=== PATIENT | female | born 1990 | race Caucasian/White ===

== ENCOUNTER 2019-11-16 05:25 | Inpatient (IN) | payer BC ==
[2019-11-16] MEDS ORDERED: Sodium Chloride 0.9% 10 ML Syringe FLUSH PRN (06:29)
[2019-11-16] MEDS ORDERED: ceFAZolin 2 GM in Premix Bag 1 BAG IV ONE (06:29)
[2019-11-16] MEDS ORDERED: Citric Acid/Sodium Citrate Solution 30 ML Cup PO ONE (06:29)
[2019-11-16] MEDS ORDERED: Sodium Chloride 0.9% 2.5 ML Syringe FLUSH PRN (06:29)
[2019-11-16] MEDS ORDERED: Sodium Chloride 0.9% 10 ML SDV IV PRN (06:29)
[2019-11-16] MEDS ORDERED: Oxytocin/0.9 % Sodium Chloride 30 UNIT/500 ML BAG IV SCH (06:30)
[2019-11-16] MEDS: Lactated Ringers 1,000 ML IV SCH ×2 (07:12→07:45)
[2019-11-16] MEDS ORDERED: Acetaminophen/oxyCODONE 325-5 MG Tab PO PRN ×2 (07:41→09:28)
[2019-11-16] MEDS ORDERED: fentaNYL 100 MCG/2 ML SDV IVPUSH PRN (07:41)
[2019-11-16] MEDS ORDERED: Ondansetron 4 MG/2 ML SDV IVPUSH PRN ×2 (07:41→09:28)
[2019-11-16] MEDS ORDERED: diphenhydrAMINE 50 MG/ML SDV IVPUSH PRN ×2 (07:41→09:28)
[2019-11-16] MEDS ORDERED: Naloxone 0.4 MG/ML Syringe IVPUSH PRN (07:41)
--- NOTE | 2019-11-16 07:43 | PCM.PREANE ---
Preanesthetic Assessment - Anesthesia/Transfusion/Family Hx Anesthesia History: Prior Anesthesia Without Reaction Family History of Anesthesia Reaction: No Transfusion History: No Prior Transfusion(s) Intubation History: Unknown - Review of Systems General: No Symptoms Pulmonary: No Symptoms Cardiovascular: No Symptoms Gastrointestinal: No Symptoms Neurological: No Symptoms Other: Reports: None - Physical Assessment Height: 5 ft Weight: 77.111 kg ASA Class: 2E Mental Status: Alert & Oriented x3 Airway Class: Mallampati = 1 Dentition: Reports: Normal Dentition Thyro-Mental Finger Breadths: 3 Mouth Opening Finger Breadths: 3 ROM/Head Extension: Full Lungs: Clear to Auscultation, Normal Respiratory Effort Cardiovascular: Regular Rate, Regular Rhythm - Lab Values: Laboratory Last Values WBC 8.62 K/uL (4.0-11.0) 11/16/19 06:58 RBC 4.76 M/uL (4.30-5.90) 11/16/19 06:58 Hgb 11.2 g/dL (12.0-16.0) L 11/16/19 06:58 Hct 35.3 % (36.0-46.0) L 11/16/19 06:58 MCV 74.2 fL (80.0-98.0) L 11/16/19 06:58 MCH 23.5 pg (27.0-32.0) L 11/16/19 06:58 MCHC 31.7 g/dL (31.0-37.0) 11/16/19 06:58 RDW Std Deviation 37.9 fl (28.0-62.0) 11/16/19 06:58 RDW Coeff of Ann-Marie 14 % (11.0-15.0) 11/16/19 06:58 Plt Count 384 K/uL (150-400) 11/16/19 06:58 MPV 8.70 fL (7.40-12.00) 11/16/19 06:58 Nucleated RBC % 0.0 /100WBC 11/16/19 06:58 Nucleated RBCs # 0 K/uL 11/16/19 06:58 Membrane Rupture POSITIVE 11/16/19 05:30 - Allergies Allergies/Adverse Reactions: Allergies Allergy/AdvReac Type Severity Reaction Status Date / Time No Known Allergies Allergy Verified 11/16/19 05:37 - Blood Blood Available: No - Anesthesia Plan Pre-Op Medication Ordered: None - Acknowledgements Anesthesia Type Planned: Spinal (general anesthesia back-up plan) Pt an Appropriate Candidate for the Planned Anesthesia: Yes Alternatives and Risks of Anesthesia Discussed w Pt/Guardian: Yes Pt/Guardian Understands and Agrees with Anesthesia Plan: Yes PreAnesthesia Questionnaire - Past Health History Medical/Surgical History: Denies Medical/Surgical History HEENT History: Reports: Other (See Below) Other HEENT History: wears contacts/glasses Cardiovascular History: Reports: None Respiratory History: Reports: None Gastrointestinal History: Reports: None Genitourinary History: Reports: Renal Calculus Other Genitourinary History: hx kidney stone MANAGER ASSURANCE History: Reports: Musculoskeletal History: Reports: None Neurological History: Reports: None Psychiatric History: Reports: Anxiety, Depression Endocrine/Metabolic History: Reports: None Hematologic History: Reports: None Immunologic History: Reports: None Oncologic (Cancer) History: Reports: None Dermatologic History: Reports: None - Past Surgical History Head Surgeries/Procedures: Reports: None HEENT Surgical History: Reports: Oral Surgery Cardiovascular Surgical History: Reports: None Respiratory Surgical History: Reports: None GI Surgical History: Reports: Appendectomy (open) Female Surgical History: Reports: Section Endocrine Surgical History: Reports: None Neurological Surgical History: Reports: None Musculoskeletal Surgical History: Reports: None Oncologic Surgical History: Reports: None Dermatological Surgical History: Reports: None - SUBSTANCE USE Smoking Status *Q: Former Smoker Tobacco Use Within Last Twelve Months: No Second Hand Smoke Exposure: No Recreational Drug Use History: No - HOME MEDS Home Medications: Home Meds Aspirin [Low Dose Aspirin EC] 81 mg PO DAILY 11/15/19 [History] Ondansetron HCl [Zofran] 4 mg PO ASDIRECTED PRN 11/15/19 [History] Pnv No.95/Ferrous Fum/Folic AC [ Vitamin Tablet] 1 tab PO DAILY [History] - CURRENT (IN HOUSE) MEDS Current Meds: Current Medications Oxytocin/Sodium Chloride (Oxytocin 30 Unit/500 Ml-Ns) 30 unit in 500 mls @ 250 mls/hr IV TITRATE [facility] Lactated Ringer's (Ringers, Lactated) 1,000 mls @ 500 mls/hr IV BOLUS [facility] Last Admin: 11/16/19 07:12 Dose: 500 mls/hr Sodium Chloride (Saline Flush) 10 ml FLUSH ASDIRECTED PRN PRN Reason: Keep Vein Open Sodium Chloride (Saline Flush) 2.5 ml FLUSH ASDIRECTED PRN PRN Reason: Keep Vein Open Sodium Chloride (Normal Saline) 10 ml IV ASDIRECTED PRN PRN Reason: IV Use Discontinued Medications Citric Acid/Sodium Citrate (Bicitra Solution) 30 ml PO ONETIME ONE Stop: 11/16/19 06:30 Cefazolin Sodium/Dextrose 2 gm (/ Premix) 50 mls @ 100 mls/hr IV ONETIME ONE Stop: 11/16/19 06:58
[2019-11-16] MEDS ORDERED: ePHEDrine 50 MG/ML SDV ONE (07:44)
[2019-11-16] MEDS ORDERED: Phenylephrine/Normal Saline 100 MCG/ML 10 ML Syringe ONE (07:44)
[2019-11-16] MEDS ORDERED: ceFAZolin 1 GM Vial ONE (07:45)
[2019-11-16] MEDS ORDERED: Sodium Chloride 0.9% 40 ML ONE (07:45)
[2019-11-16] MEDS ORDERED: Octyl 2-Cyanoacrylate 1 Tube ONE (07:49)
[2019-11-16] MEDS ORDERED: Morphine PF 10 MG/10 ML SDV ONE (07:50)
[2019-11-16] MEDS ORDERED: Oxytocin 10 Units/1 ML SDV ONE ×2 (08:45→08:49)
[2019-11-16] MEDS ORDERED: Oxytocin 10 Units/1 ML SDV IM PRN (09:28)
[2019-11-16] MEDS ORDERED: Lanolin 100% Cream 7 GM Tube TOP PRN (09:28)
[2019-11-16] MEDS ORDERED: Misoprostol 200 MCG Tab RECTAL PRN (09:28)
[2019-11-16] MEDS ORDERED: Methylergonovine 0.2 MG/1 ML Amp IM PRN (09:28)
[2019-11-16] MEDS ORDERED: Tranexamic Acid 1,000 MG in Sodium Chloride 0.9% 100 ML IV PRN (09:28)
[2019-11-16] MEDS ORDERED: Bisacodyl 10 MG Supp RECTAL PRN (09:28)
--- NOTE | 2019-11-16 09:28 | PCM.OPNOTE ---
- General Post-Op/Procedure Note Date of Surgery/Procedure: 11/16/19 Operative Procedure(s): Repeat lower segment transverse Findings: Live female delivered at 838am , 9/9 weight 2790g Pre Op Diagnosis: 29yo @ 39w0d with prelabor rupture of membrane. Previous X 1 Post-Op Diagnosis: same Primary Surgeon: Ron Jarvis Anesthesia Provider: Francisco Valdivia Interior Painter: Waleska Hartmann Fluid Replacement, Intraop: 2,600 Output, Urine Amount: 180 EBL in mLs: 600 Complications: None Condition: Good
[2019-11-16] MEDS ORDERED: Lactated Ringers 1,000 ML IV SCH (09:30)
[2019-11-16] MEDS ORDERED: Oxytocin/Lactated Ringers 30 UNIT/500 ML BAG IV SCH (09:30)
--- NOTE | 2019-11-16 10:08 | PCM.POSTAN ---
POST ANESTHESIA ASSESSMENT - MENTAL STATUS Mental Status: Alert - VITAL SIGNS Vital Signs: Stable - RESPIRATORY Respiratory Status: Respiratory Rate WNL - CARDIOVASCULAR CV Status: Pulse Rate WNL - GASTROINTESTINAL GI Status: No Symptoms - PAIN Pain Score: 0 (SAB regressing well.) - POST OP HYDRATION Hydration Status: Adequate & Stable - OBSERVATIONS Free Text/Narrative:: Doing well. No problems noted.
[2019-11-16] MEDS: Ketorolac 30 MG/ML SDV IVPUSH SCH ×3 (10:13→21:16)
[2019-11-16] MEDS: Nalbuphine 10 MG/1 ML Vial IVPUSH PRN ×2 (10:13→14:29)
--- NOTE | 2019-11-16 10:55 | OR ---
SURGEON: TIMA PATEL DATE OF PROCEDURE: 11/16/2019 PREOPERATIVE DIAGNOSES: A 29-year-old, G2, P 1-0-0-1, at 39 weeks with prelabor rupture of membranes, previous x1. POSTOPERATIVE DIAGNOSES: A 29-year-old, G2, P 1-0-0-1, at 39 weeks with prelabor rupture of membranes, previous x1. PROCEDURE: Repeat lower transverse section. IV FLUID: 2600. ESTIMATED BLOOD LOSS: 600. URINE OUTPUT: 180. MOLD CHIPPER: Waleska Hartmann. COMPLICATION: None. ANESTHESIA: Spinal. NOTES AND FINDINGS: Live female delivered at 8:38 a.m. score is 9 and 9. Weight is 2790 g. BRIEF HISTORY: A 29-year-old, G2, P 1-0-0-1, at 39 weeks 0 days, who was complaining about some rupture of membranes. She was confirmed positive with AmniSure. As a result, she was consented for . She declined . Risks, benefits, and alternatives were given, and she decided to proceed. DESCRIPTION OF PROCEDURE: The patient was taken to the operating room where spinal anesthesia was performed without difficulty. She was prepared and draped in the dorsal supine position with a leftward tilt. A Pfannenstiel skin incision was made on the line of the previous incision and carried down to the fascia with the scalpel. The fascia was incised and extended upward and laterally and the fascia was then from the rectus muscle superiorly and inferiorly. The rectus muscle was in the midline all the way to the level of the pubic symphysis. With gradual dissection, the peritoneum was entered in without any difficulty. The peritoneum was stretched manually and the Shahram retractor was placed without any difficulty. Lower uterine incision bladder flap was made and the incision was then made, extended manually upwards and outwards. The fetus was in cephalic position, was put to the level of the incision. Then, fundal pressure was applied and the was delivered. There was a cord around the neck that was reduced. The cord was clamped and cut. The infant was handed over to the awaiting manager winter. The placenta was delivered with massage of the uterine fundus. The membranes were cleaned with moist laparotomy sponges. The uterus was repaired in 2 layers, first layer was with 0 Vicryl, second layer was an imbricating layer with 0 Monocryl. The Shahram retractor was then removed. The gutters were cleaned. Ovaries appeared normal and tubes appeared normal. The peritoneum was then approximated with 2-0 Vicryl. The rectus muscle was also approximated with mattress sutures and the fascia was closed with 0 Vicryl in a continuous fashion. The subcutaneous fat was closed with 3-0 plain gut and the skin was closed with 3-0 Monocryl on a Molina needle. All instrument and pad counts were correct x2. The patient tolerated the procedure well and was sent to the Labor and Delivery room in stable condition. CHECO DELGADO /[id number]
[2019-11-16] MEDS: Docusate Sodium 100 MG Cap PO SCH (21:17)
[2019-11-17] MEDS: Ketorolac 30 MG/ML SDV IVPUSH SCH ×2 (03:28→09:51)
--- NOTE | 2019-11-17 04:08 | PCM.PNPP ---
- General Info Date of Service: 11/17/19 Functional Status: Reports: Pain Controlled, Tolerating Diet, Ambulating - Review of Systems General: Reports: Fatigue. Denies: Fever, Weakness Pulmonary: Denies: Shortness of Breath Cardiovascular: Denies: Chest Pain, Palpitations, Lightheadedness Gastrointestinal: Reports: Abdominal Pain (incisional, well controlled). Denies : Nausea, Vomiting Genitourinary: Denies: Flank Pain Musculoskeletal: Reports: No Symptoms Skin: Reports: No Symptoms Neurological: Reports: No Symptoms Psychiatric: Reports: No Symptoms - General Info Date of Service: 11/17/19 - Patient Data Vital Signs - Most Recent: Last Vital Signs Temp 36.8 C 11/17/19 00:35 Pulse 92 11/17/19 03:00 Resp 17 11/17/19 03:00 BP 105/53 L 11/17/19 00:35 Pulse Ox 99 11/17/19 03:00 Weight - Most Recent: 77.111 kg I&O - Last 24 Hours: Intake & Output 11/16/19 11/16/19 11/17/19 14:59 22:59 06:59 Intake Total 2600 Output Total 360 Balance 2240 Lab Results - Last 24 Hours: Laboratory Results - last 24 hr 11/16/19 11/16/19 11/16/19 Range/Units 05:30 06:58 06:58 WBC 8.62 (4.0-11.0) K/uL RBC 4.76 (4.30-5.90) M/uL Hgb 11.2 L (12.0-16.0) g/dL Hct 35.3 L (36.0-46.0) % MCV 74.2 L (80.0-98.0) fL MCH 23.5 L (27.0-32.0) pg MCHC 31.7 (31.0-37.0) g/dL RDW Std Deviation 37.9 (28.0-62.0) fl RDW Coeff of Ann-Marie 14 (11.0-15.0) % Plt Count 384 (150-400) K/uL MPV 8.70 (7.40-12.00) fL Nucleated RBC % 0.0 /100WBC Nucleated RBCs # 0 K/uL Membrane Rupture POSITIVE Blood Type B POSITIVE Antibody Screen NEGATIVE Med Orders - Current: Current Medications Bisacodyl (Dulcolax) 10 mg RECTAL ONETIME PRN PRN Reason: Constipation Diphenhydramine HCl (Benadryl) 25 mg IVPUSH Q4H PRN PRN Reason: Itching Stop: 11/17/19 07:41 Diphenhydramine HCl (Benadryl) 25 mg IVPUSH Q6H PRN PRN Reason: Itching or Nausea Docusate Sodium (Colace) 100 mg PO BID [facility] Last Admin: 11/16/19 21:17 Dose: 100 mg Emollient Ointment (Lansinoh Hpa) 0 gm TOP ASDIRECTED PRN PRN Reason: Sore Nipples Last Admin: 11/16/19 19:16 Dose: 1 tube Fentanyl (Sublimaze) 50 mcg IVPUSH Q1H PRN PRN Reason: Pain (severe 7-10) Oxytocin/Sodium Chloride (Oxytocin 30 Unit/500 Ml-Ns) 30 unit in 500 mls @ 250 mls/hr IV TITRATE [facility] Lactated Ringer's (Ringers, Lactated) 1,000 mls @ 500 mls/hr IV BOLUS [facility] Last Admin: 11/16/19 07:45 Dose: 999 mls/hr Tranexamic Acid 1,000 mg/ (Sodium Chloride) 110 mls @ 660 mls/hr IV ONETIME PRN PRN Reason: Bleeding Lactated Ringer's (Ringers, Lactated) 1,000 mls @ 125 mls/hr IV ASDIRECTED [facility] Oxytocin/Lactated Ringer's (Pitocin In Lr 30 Units/500 Ml) 30 unit in 500 mls @ 2 mls/hr IV TITRATE [facility]; Protocol Ibuprofen (Motrin) 800 mg PO Q8H PRN PRN Reason: mild pain or fever Ketorolac Tromethamine (Toradol) 30 mg IVPUSH Q6H [facility] Stop: 11/17/19 09:31 Last Admin: 11/17/19 03:28 Dose: 30 mg Methylergonovine Maleate (Methergine) 0.2 mg IM ONETIME PRN PRN Reason: Excessive Vaginal Bleeding Misoprostol (Cytotec) 1,000 mcg RECTAL ONETIME PRN PRN Reason: excessive bleeding Nalbuphine HCl (Nubain) 5 mg IVPUSH ASDIRECTED PRN PRN Reason: Itching Last Admin: 11/16/19 14:29 Dose: 5 mg Naloxone HCl (Narcan) 0.1 mg IVPUSH ONETIME PRN PRN Reason: Respiratory Depression Stop: 11/17/19 07:41 Ondansetron HCl (Zofran) 4 mg IVPUSH Q6H PRN PRN Reason: Nausea Ondansetron HCl (Zofran) 4 mg IVPUSH Q4H PRN PRN Reason: Nausea/Vomiting Oxycodone/Acetaminophen (Percocet 325-5 Mg) 2 tab PO Q6H PRN PRN Reason: Pain (moderate 4-6) Oxycodone/Acetaminophen (Percocet 325-5 Mg) 1 tab PO Q4H PRN PRN Reason: Pain (moderate 4-6) Oxycodone/Acetaminophen (Percocet 325-5 Mg) 2 tab PO Q4H PRN PRN Reason: Pain (moderate 4-6) Oxytocin (Pitocin) 10 unit IM ASDIRECTED PRN PRN Reason: Excessive Vaginal Bleeding Sodium Chloride (Saline Flush) 10 ml FLUSH ASDIRECTED PRN PRN Reason: Keep Vein Open Sodium Chloride (Saline Flush) 2.5 ml FLUSH ASDIRECTED PRN PRN Reason: Keep Vein Open Sodium Chloride (Normal Saline) 10 ml IV ASDIRECTED PRN PRN Reason: IV Use Discontinued Medications Cefazolin Sodium (Ancef) Confirm Administered Dose 2 gm .ROUTE .STK-MED ONE Stop: 11/16/19 07:46 Citric Acid/Sodium Citrate (Bicitra Solution) 30 ml PO ONETIME ONE Stop: 11/16/19 06:30 Ephedrine Sulfate (Ephedrine Sulfate) Confirm Administered Dose 100 mg .ROUTE .STK-MED ONE Stop: 11/16/19 07:45 Cefazolin Sodium/Dextrose 2 gm (/ Premix) 50 mls @ 100 mls/hr IV ONETIME ONE Stop: 11/16/19 06:58 Acetaminophen (Ofirmev) Confirm Administered Dose 100 mls @ as directed .ROUTE .STK-MED ONE Stop: 11/16/19 07:42 Sodium Chloride (Normal Saline) Confirm Administered Dose 40 mls @ as directed .ROUTE .STK-MED ONE Stop: 11/16/19 07:46 Morphine Sulfate (Duramorph Pf) Confirm Administered Dose 10 mg .ROUTE .STK-MED ONE Stop: 11/16/19 07:51 Octyl Cyanoacrylate (Dermabond Advance) Confirm Administered Dose 1 applic .ROUTE .STK-MED ONE Stop: 11/16/19 07:50 Oxytocin (Pitocin) Confirm Administered Dose 20 unit .ROUTE .STK-MED ONE Stop: 11/16/19 08:46 Oxytocin (Pitocin) Confirm Administered Dose 10 unit .ROUTE .STK-MED ONE Stop: 11/16/19 08:50 Phenylephrine HCl (Phenylephrine In Ns 100 Mcg/Ml) Confirm Administered Dose 1 mg .ROUTE .STK-MED ONE Stop: 11/16/19 07:45 - Infant Interaction Support Person: Significant Other - Recovery Exam Fundal Tone: Firm Fundal Level: 1 Fingerbreadths Below Umbilicus Fundal Placement: Midline Lochia Amount: Scant Lochia Color: Rubra/Red Perineum Description: Intact, Minimal Bruising/Swelling Episiotomy/Laceration: Approximated Bladder Status: Indwelling Catheter in Place Urinary Elimination: Straight Catheterization - Exam General: Alert, Oriented Lungs: Normal Respiratory Effort Cardiovascular: Regular Rate, Regular Rhythm GI/Abdominal Exam: Normal Bowel Sounds, Soft Extremities: Pedal Edema (trace). No: Henrry's Sign Skin: Warm, Dry, Intact Wound/Incisions: Dressing Dry and Intact Neurological: No New Focal Deficit Psy/Mental Status: Alert, Normal Affect - Problem List & Annotations (1) S/P repeat low transverse SNOMED Code(s): 977514299, 15398904, 050369415, 318293799, 744190005 Code(s): Z98.891 - HISTORY OF UTERINE SCAR FROM PREVIOUS SURGERY Status: Acute Current Visit: Yes - Problem List Review Problem List Initiated/Reviewed/Updated: Yes - Assessment Assessment:: POD 1 status post repeat LTCS - Plan Plan:: Continue postoperative cares, ambulate halls.
--- NOTE | 2019-11-17 07:42 | PCM48HPAN ---
Post Anesthesia Note - EVALUATION WITHIN 48HRS OF ANESTHETIC Vital Signs in Normal Range: Yes Patient Participated in Evaluation: Yes Respiratory Function Stable: Yes Airway Patent: Yes Cardiovascular Function Stable: Yes Hydration Status Stable: Yes Pain Control Satisfactory: Yes Nausea and Vomiting Control Satisfactory: Yes Mental Status Recovered: Yes Vital Signs: Last Vital Signs Temp 36.1 C 11/17/19 04:53 Pulse 87 11/17/19 06:00 Resp 17 11/17/19 06:00 BP 104/63 11/17/19 04:53 Pulse Ox 97 11/17/19 06:00
[2019-11-17] MEDS: Docusate Sodium 100 MG Cap PO SCH ×2 (09:51→22:33)
[2019-11-17] MEDS: Ibuprofen 800 MG Tab PO PRN (16:03)
[2019-11-17] MEDS: Acetaminophen/oxyCODONE 325-5 MG Tab PO PRN (22:32)
[2019-11-18] MEDS: Ibuprofen 800 MG Tab PO PRN ×2 (00:40→08:47)
[2019-11-18] MEDS: Acetaminophen/oxyCODONE 325-5 MG Tab PO PRN (04:56)
[2019-11-18 08:18] VITALS: BP 117/76; PULSE 87
--- NOTE | 2019-11-18 08:45 | PCM.PNPP ---
- General Info Date of Service: 11/18/19 Functional Status: Reports: Pain Controlled, Tolerating Diet, Ambulating, Urinating - Review of Systems General: Reports: Fatigue. Denies: Fever, Weakness Pulmonary: Denies: Shortness of Breath Cardiovascular: Denies: Chest Pain, Palpitations, Lightheadedness Genitourinary: Reports: No Symptoms Musculoskeletal: Reports: No Symptoms Skin: Reports: No Symptoms Neurological: Reports: No Symptoms Psychiatric: Reports: No Symptoms - General Info Date of Service: 11/18/19 - Patient Data Vital Signs - Most Recent: Last Vital Signs Temp 36.4 C 11/18/19 08:00 Pulse 87 11/18/19 08:00 Resp 16 11/18/19 08:00 BP 117/76 11/18/19 08:00 Pulse Ox 97 11/18/19 08:00 Weight - Most Recent: 77.111 kg Lab Results - Last 24 Hours: Laboratory Results - last 24 hr 11/16/19 Range/Units 06:58 RPR Non Reactive (NonRea<1:1) Med Orders - Current: Current Medications Bisacodyl (Dulcolax) 10 mg RECTAL ONETIME PRN PRN Reason: Constipation Diphenhydramine HCl (Benadryl) 25 mg IVPUSH Q6H PRN PRN Reason: Itching or Nausea Docusate Sodium (Colace) 100 mg PO BID [facility] Last Admin: 11/17/19 22:33 Dose: 100 mg Emollient Ointment (Lansinoh Hpa) 0 gm TOP ASDIRECTED PRN PRN Reason: Sore Nipples Last Admin: 11/16/19 19:16 Dose: 1 tube Fentanyl (Sublimaze) 50 mcg IVPUSH Q1H PRN PRN Reason: Pain (severe 7-10) Oxytocin/Sodium Chloride (Oxytocin 30 Unit/500 Ml-Ns) 30 unit in 500 mls @ 250 mls/hr IV TITRATE [facility] Lactated Ringer's (Ringers, Lactated) 1,000 mls @ 500 mls/hr IV BOLUS [facility] Last Admin: 11/16/19 07:45 Dose: 999 mls/hr Tranexamic Acid 1,000 mg/ (Sodium Chloride) 110 mls @ 660 mls/hr IV ONETIME PRN PRN Reason: Bleeding Lactated Ringer's (Ringers, Lactated) 1,000 mls @ 125 mls/hr IV ASDIRECTED [facility] Oxytocin/Lactated Ringer's (Pitocin In Lr 30 Units/500 Ml) 30 unit in 500 mls @ 2 mls/hr IV TITRATE [facility]; Protocol Ibuprofen (Motrin) 800 mg PO Q8H PRN PRN Reason: mild pain or fever Last Admin: 11/18/19 00:40 Dose: 800 mg Methylergonovine Maleate (Methergine) 0.2 mg IM ONETIME PRN PRN Reason: Excessive Vaginal Bleeding Misoprostol (Cytotec) 1,000 mcg RECTAL ONETIME PRN PRN Reason: excessive bleeding Nalbuphine HCl (Nubain) 5 mg IVPUSH ASDIRECTED PRN PRN Reason: Itching Last Admin: 11/16/19 14:29 Dose: 5 mg Ondansetron HCl (Zofran) 4 mg IVPUSH Q6H PRN PRN Reason: Nausea Ondansetron HCl (Zofran) 4 mg IVPUSH Q4H PRN PRN Reason: Nausea/Vomiting Oxycodone/Acetaminophen (Percocet 325-5 Mg) 2 tab PO Q6H PRN PRN Reason: Pain (moderate 4-6) Oxycodone/Acetaminophen (Percocet 325-5 Mg) 1 tab PO Q4H PRN PRN Reason: Pain (moderate 4-6) Last Admin: 11/18/19 04:56 Dose: 1 tab Oxycodone/Acetaminophen (Percocet 325-5 Mg) 2 tab PO Q4H PRN PRN Reason: Pain (moderate 4-6) Oxytocin (Pitocin) 10 unit IM ASDIRECTED PRN PRN Reason: Excessive Vaginal Bleeding Sodium Chloride (Saline Flush) 10 ml FLUSH ASDIRECTED PRN PRN Reason: Keep Vein Open Sodium Chloride (Saline Flush) 2.5 ml FLUSH ASDIRECTED PRN PRN Reason: Keep Vein Open Sodium Chloride (Normal Saline) 10 ml IV ASDIRECTED PRN PRN Reason: IV Use Discontinued Medications Cefazolin Sodium (Ancef) Confirm Administered Dose 2 gm .ROUTE .STK-MED ONE Stop: 11/16/19 07:46 Citric Acid/Sodium Citrate (Bicitra Solution) 30 ml PO ONETIME ONE Stop: 11/16/19 06:30 Diphenhydramine HCl (Benadryl) 25 mg IVPUSH Q4H PRN PRN Reason: Itching Stop: 11/17/19 07:41 Ephedrine Sulfate (Ephedrine Sulfate) Confirm Administered Dose 100 mg .ROUTE .STK-MED ONE Stop: 11/16/19 07:45 Cefazolin Sodium/Dextrose 2 gm (/ Premix) 50 mls @ 100 mls/hr IV ONETIME ONE Stop: 11/16/19 06:58 Last Admin: 11/17/19 10:12 Dose: Not Given Acetaminophen (Ofirmev) Confirm Administered Dose 100 mls @ as directed .ROUTE .STK-MED ONE Stop: 11/16/19 07:42 Sodium Chloride (Normal Saline) Confirm Administered Dose 40 mls @ as directed .ROUTE .STK-MED ONE Stop: 11/16/19 07:46 Ketorolac Tromethamine (Toradol) 30 mg IVPUSH Q6H [facility] Stop: 11/17/19 09:31 Last Admin: 11/17/19 09:51 Dose: 30 mg Morphine Sulfate (Duramorph Pf) Confirm Administered Dose 10 mg .ROUTE .STK-MED ONE Stop: 11/16/19 07:51 Naloxone HCl (Narcan) 0.1 mg IVPUSH ONETIME PRN PRN Reason: Respiratory Depression Stop: 11/17/19 07:41 Octyl Cyanoacrylate (Dermabond Advance) Confirm Administered Dose 1 applic .ROUTE .STK-MED ONE Stop: 11/16/19 07:50 Oxytocin (Pitocin) Confirm Administered Dose 20 unit .ROUTE .STK-MED ONE Stop: 11/16/19 08:46 Oxytocin (Pitocin) Confirm Administered Dose 10 unit .ROUTE .STK-MED ONE Stop: 11/16/19 08:50 Phenylephrine HCl (Phenylephrine In Ns 100 Mcg/Ml) Confirm Administered Dose 1 mg .ROUTE .STK-MED ONE Stop: 11/16/19 07:45 - Interaction Support Person: Significant Other - Recovery Exam Fundal Tone: Firm Fundal Level: 2 Fingerbreadths Below Umbilicus Fundal Placement: Midline Lochia Amount: Scant Lochia Color: Rubra/Red Perineum Description: Intact, Minimal Bruising/Swelling Episiotomy/Laceration: None Bladder Status: Voiding Urinary Elimination: Indwelling Catheter - Exam General: Alert, Oriented Neck: Supple Lungs: Normal Respiratory Effort Cardiovascular: Regular Rate, Regular Rhythm GI/Abdominal Exam: Normal Bowel Sounds, Soft, Non-Tender Extremities: Pedal Edema (trace). No: Henrry's Sign Skin: Warm, Dry, Intact Wound/Incisions: No Drainage. No: Erythema Neurological: No New Focal Deficit Psy/Mental Status: Alert, Normal Affect, Normal Mood - Problem List & Annotations (1) S/P repeat low transverse SNOMED Code(s): 539309476, 48280493, 018919675, 464166820, 391623473 Code(s): Z98.891 - HISTORY OF UTERINE SCAR FROM PREVIOUS SURGERY Status: Acute Current Visit: Yes - Problem List Review Problem List Initiated/Reviewed/Updated: Yes - My Orders Last 24 Hours: My Active Orders 11/18/19 08:43 Ready for Discharge [RC] PER UNIT ROUTINE - Assessment Assessment:: POD 2 status post repeat LTCS - Plan Plan:: Doing well overall, would like to go home today. Discharge instructions reviewed. Follow up at [facility] 2 and 6 weeks. Discharge to home today.
[2019-11-18] MEDS: Docusate Sodium 100 MG Cap PO SCH (08:47)
== END 2019-11-18 13:05 | disposition home or self-care (01) | DRG 540 ==
LOC: MW.OBCHECK 05:25 → MW.OB 05:26 → OBSVTOIN 08:38 → MW.OBCHECK 08:38 → MW.OB 11:23
PROVIDERS: ADMIT Obstetrics & Gynecology; ATTEND Obstetrics & Gynecology
PROC: 10D00Z1 Extraction of Products of Conception, Low, Open Approach (ICD-10-PCS; principal; 2019-11-16)
DX: O34.211 Maternal care for low transverse scar from previous cesarean delivery (principal); Z37.0 Single live birth; Z3A.39 39 weeks gestation of pregnancy
CPT/HCPCS: 01961; 36415; 51702; 59025; 84112; 85014; 85018; 85027; 86593; 86850; 86900; 86901; A9270-GY; J0131; J0690; J1885; J2270; J2300; J2370; J2590; J7120

== ENCOUNTER 2020-08-16 02:37 | Day surgery (SDC) | payer BC ==
--- NOTE | 2020-08-16 03:26 | EDM.PDOC ---
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 She states that she began having sudden onset of cramping and bleeding this afternoon which is acutely worsened and she has had a significant amount of bleeding and clots. Now feels lightheaded when she is going to stand up. Feels like she wants to vomit. She thinks that she has passed the products of conception. She denies any persistent abdominal pain just intermittent cramping. No urinary symptoms. No other associated signs or symptoms. No other modifying, aggravating or alleviating factors. Review of systems: A 10-point review of systems, other than pertinent positives and negatives as stated per HPI, is otherwise negative. Past medical history: As per history of present illness and as reviewed below otherwise noncontributory. Surgical history: As per history of present illness and as reviewed below otherwise noncontributory. Social history: No reported history of drug or alcohol abuse. Family history: As per history of present illness and as reviewed below otherwise noncontributory. Physical exam: VITAL SIGNS: Reviewed. GENERAL: Appears to be in mild to moderate distress. Mild pallor. HEAD: No signs of head trauma. EYES: Pupils are equal. Extraocular motions intact. EARS: Hearing grossly intact. MOUTH: Oropharynx is normal. NECK: No adenopathy, no JVD. CHEST: Chest with clear breath sounds bilaterally. No wheezes, rales, or rhonchi. CARDIAC: Regular rate and rhythm. Normal S1 and S2, without murmurs, gallops, or rubs. VASCULAR: Peripheral pulses normal and equal in all extremities. ABDOMEN: Soft, mild pelvic tenderness, no distention, rebound or guarding. No masses palpated. MUSCULOSKELETAL: Good range of motion of all major joints. Extremities without clubbing, cyanosis or edema. NEUROLOGIC EXAM: Alert and oriented x 3. No focal sensory or motor deficits. Speech normal. Follows commands. PSYCHIATRIC: Mood normal. SKIN: No rash or lesions. Initial Differential Diagnosis & Plan: Miscarriage, ectopic , threatened miscarriage I will obtain a bedside ultrasound to evaluate for miscarriage versus threatened miscarriage. The patient has a soft blood pressure and will need to be lay down into a bed. I will start IV fluids, obtain CBC, anabolic panel, type and screen, and evaluate for need for transfusion. Definitive disposition and diagnosis as appropriate pending reevaluation and review of above. abdominal Pain Score (Numeric/FACES): 7 - Related Data Allergies Allergy/AdvReac Type Severity Reaction Status Date / Time No Known Allergies Allergy Verified 11/16/19 05:37 Home Meds: Home Meds . 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 History: Reports: Musculoskeletal History: Reports: None Neurological History: Reports: None Psychiatric History: Reports: Anxiety, Depression Endocrine/Metabolic History: Reports: None Hematologic History: Reports: None Immunologic History: Reports: None Oncologic (Cancer) History: Reports: None Dermatologic History: Reports: None - Infectious Disease History Infectious Disease History: Reports: None - Past Surgical History Head Surgeries/Procedures: Reports: None HEENT Surgical History: Reports: Oral Surgery Cardiovascular Surgical History: Reports: None Respiratory Surgical History: Reports: None GI Surgical History: Reports: Appendectomy Female Surgical History: Reports: Section Endocrine Surgical History: Reports: None Neurological Surgical History: Reports: None Musculoskeletal Surgical History: Reports: None Oncologic Surgical History: Reports: None Dermatological Surgical History: Reports: None Social & Family History - Family History HEENT: Reports: None GI: Reports: None : Reports: None OBGYN: Reports: None Musculoskeletal: Reports: None Oncologic: Reports: Lung - Tobacco Use Tobacco Use Status *Q: Never Tobacco User Second Hand Smoke Exposure: No - Caffeine Use Caffeine Use: Reports: Coffee - Recreational Drug Use Recreational Drug Use: No ED ROS GENERAL - Review of Systems Review Of Systems: See Below (noted) ED EXAM, GI/ABD - Physical Exam Exam: See Below (noted) ED ABDOMINAL/GI PROCEDURES - Ultrasound Ultrasound: Normal, Abnormal Pelvis Progress: PROCEDURE NOTE: Limited OB / Pelvic Ultrasound (transabdominal) Indication: Confirm a live IUP All images obtained and evaluated by me. Findings: 1. Uterus Identified 2. No significant Free Fluid Noted 3. No IUP identified. Some shotty/clotted appearing material in the uterus noted Interpretation: No IUP identified Signed by Prateek Lake M.D. Course - Vital Signs Last Recorded V/S: Last Vital Signs Temp 96.4 F L 08/16/20 03:02 Pulse 84 08/16/20 04:29 Resp 14 08/16/20 04:29 BP 117/52 L 08/16/20 04:29 Pulse Ox 99 08/16/20 04:29 - Orders/Labs/Meds Orders: Active Orders 24 hr Category Date Time Status UA RFX SALMA AND CULT IF INDIC [URIN] Stat Lab 08/16/20 03:07 Ordered Labs: Laboratory Tests 08/16/20 08/16/20 08/16/20 Range/Units 03:15 03:15 03:38 WBC 10.89 (4.0-11.0) K/uL RBC 4.66 (4.30-5.90) M/uL Hgb 12.6 (12.0-16.0) g/dL Hct 37.9 (36.0-46.0) % MCV 81.3 (80.0-98.0) fL MCH 27.0 (27.0-32.0) pg MCHC 33.2 (31.0-37.0) g/dL RDW Std Deviation 37.8 (28.0-62.0) fl RDW Coeff of Ann-Marie 13 (11.0-15.0) % Plt Count 373 (150-400) K/uL MPV 9.10 (7.40-12.00) fL Neut % (Auto) 76.9 (48.0-80.0) % Lymph % (Auto) 16.3 (16.0-40.0) % Story % (Auto) 5.0 (0.0-15.0) % Eos % (Auto) 1.4 (0.0-7.0) % Baso % (Auto) 0.4 (0.0-1.5) % Neut # (Auto) 8.4 H (1.4-5.7) K/uL Lymph # (Auto) 1.8 (0.6-2.4) K/uL Story # (Auto) 0.5 (0.0-0.8) K/uL Eos # (Auto) 0.2 (0.0-0.7) K/uL Baso # (Auto) 0.0 (0.0-0.1) K/uL Nucleated RBC % 0.0 /100WBC Nucleated RBCs # 0 K/uL Sodium 132 L (136-145) mmol/L Potassium 3.2 L (3.5-5.1) mmol/L Chloride 101 (98-107) mmol/L Carbon Dioxide 23.8 (21.0-32.0) mmol/L BUN 9 (7.0-18.0) mg/dL Creatinine 0.8 (0.6-1.0) mg/dL Est Cr Clr Drug Dosing 78.30 mL/min Estimated GFR (MDRD) > 60.0 ml/min Glucose 125 H (74-106) mg/dL Calcium 8.7 (8.5-10.1) mg/dL Total Bilirubin 0.4 (0.2-1.0) mg/dL AST 14 L (15-37) IU/L ALT 31 (14-63) IU/L Alkaline Phosphatase 47 (46-116) U/L Total Protein 7.1 (6.4-8.2) g/dL Albumin 3.7 (3.4-5.0) g/dL Globulin 3.4 (2.6-4.0) g/dL Albumin/Globulin Ratio 1.1 (0.9-1.6) HCG, Quant 616.0 mIU/mL Blood Type B POSITIVE Antibody Screen NEGATIVE Meds: Medications Discontinued Medications Generic Name Dose Route Start Last Admin Trade Name Freq PRN Reason Stop Dose Admin Methylergonovine Maleate 0.2 mg 08/16/20 04:27 Methergine IM 08/16/20 04:28 ONETIME ONE - Re-Assessments/Exams Free Text/Narrative Re-Assessment/Exam: 08/16/20 04:[address] Marshall. Discussed the case in detail. He recommended Methergine. He recommends calling him back if this does not work and the patient continues to hemorrhage. Departure - Departure Time of Disposition: 04:29 Disposition: Home, Self-Care 01 Clinical Impression: Miscarriage, Blood type B+ - Discharge Information *PRESCRIPTION DRUG MONITORING PROGRAM REVIEWED*: Not Applicable *COPY OF PRESCRIPTION DRUG MONITORING REPORT IN PATIENT SYDNI: Not Applicable Instructions: Miscarriage, [id number] Referrals: PCP,None [Primary Care Provider] - Forms: ED Department Discharge Additional Instructions: The following information is given to patients seen in the emergency department who are being discharged to home. This information is to outline your options for follow-up care. We provide all patients seen in our emergency department with a follow-up referral. The need for follow-up, as well as the timing and circumstances, are variable depending upon the specifics of your emergency department visit. If you don't have a primary care physician on staff, we will provide you with a referral. We always advise you to contact your personal physician following an emergency department visit to inform them of the circumstance of the visit and for follow-up with them and/or the need for any referrals to a consulting specialist. The emergency department will also refer you to a specialist when appropriate. This referral assures that you have the opportunity for follow-up care with a specialist. All of these measure are taken in an effort to provide you with optimal care, which includes your follow-up. Thank you for coming to the [facility] urgency department for your care today. It was Dr. Lake's pleasure to take care of you. [facility] [address] [place] [id number] [facility] [place] [address] [place] [address] It appears that you have had a miscarriage today. Return for fever, signs of infection, persistent pain, persistent bleeding or any other concerns. Your ultrasound shows no evidence of an ectopic . Your blood type is B+. Please follow-up with your CLAIM PROCESSING SPECIALIST doctor. Under all circumstances we always encourage you to contact your private physician who remains a resource for coordinating your care. When calling for follow-up care, please make the office aware that this follow-up is from your recent emergency room visit. If for any reason you are refused follow-up, please contact the [facility] Emergency Department at and asked to speak to the emergency department charge nurse. Sepsis Event Note (ED) - Evaluation Sepsis Screening Result: No Definite Risk - Focused Exam Vital Signs: Vital Signs Temp Pulse Resp BP Pulse Ox 08/16/20 04:29 84 14 117/52 L 99 08/16/20 03:02 96.4 F L 97 18 90/45 L 99 - My Orders Last 24 Hours: My Active Orders 08/16/20 03:07 UA RFX SALMA AND CULT IF INDIC [URIN] Stat - Assessment/Plan Last 24 Hours: My Active Orders 08/16/20 03:07 UA RFX SALMA AND CULT IF INDIC [URIN] Stat
[2020-08-16 03:55] LABS: BLOOD UREA NITROGEN,BUN 9 mg/dL (7.0-18.0); CARBON DIOXIDE,CO2 23.8 mmol/L (21.0-32.0); CHLORIDE,CL 101 mmol/L (98-107); GLUCOSE RANDOM 125 mg/dL (74-106); POTASSIUM,K 3.2 mmol/L (3.5-5.1); SODIUM,NA 132 mmol/L (136-145)
[2020-08-16] MEDS ORDERED: Methylergonovine 0.2 MG/1 ML Amp IM ONE (04:27)
--- NOTE | 2020-08-16 04:44 | US ---
INDICATION: Heavy vaginal bleeding. Miscarriage. COMPARISON: None available. FINDINGS: Transvaginal ultrasound examination of the female pelvis was performed. There is no sign of an intrauterine gestational sac. This would be consistent with a completed spontaneous , but early intrauterine gestation, an ectopic gestation cannot be excluded on this examination alone. The uterus is anteverted with no evidence of mass. It is mildly enlarged, measuring 11.4 x 6.7 x 7.1 cm. The endometrial lining is moderately increased in thickness at 14 mm. The endometrial lining is increased in echogenicity as well, consistent with hemorrhage. The ovaries are normal in appearance, the right measuring 2.6 x 3.0 x 1.1 cm and the left measuring 3.3 x 2.7 x 1.7 cm. There is normal color and pulse doppler flow in both ovaries. There is no sign of free fluid in the pelvis. IMPRESSION: No sign of an intrauterine gestational sac. Differential diagnosis includes complete spontaneous , early intrauterine gestation, or even ectopic gestation. Recommend correlation with previous ultrasounds if any are available, consider serial quantitative beta hCGs. Moderate thickening of the endometrial lining with heterogeneous, increased echogenicity consistent with blood clot. Dictated by Kurt Alvarez MD @ Aug 16 2020 4:37AM Signed by Dr. Kurt Alvarez @ Aug 16 2020 4:42AM
[2020-08-16] MEDS ORDERED: HYDROmorphone 2 MG/ML Syringe IVPUSH ONE (04:53)
[2020-08-16] MEDS ORDERED: Sodium Chloride 0.9% 1,000 ML IV ONE ×2 (04:53)
[2020-08-16] MEDS ORDERED: Ondansetron 4 MG/2 ML SDV IVPUSH ONE (05:14)
--- NOTE | 2020-08-16 05:19 | PCM.SN.2 ---
- Free Text/Narrative Note: August 16, 2020 at 4:45 AM Patient is having more bleeding and cramping. Methergine has already been given. 5:10 AM Patient is now hypotensive and continued to have bleeding. 5:15 AM I have spoken to Dr. Marshall, COATING INSPECTOR, and he will come to the bedside to evaluate the patient. My diagnostic impression: 1. Incomplete miscarriage 2. Vaginal hemorrhaging 3. Hypotension I will repeat a fluid bolus, repeat H&H, and likely will need to admit the patient. Critical Care Note: The patient presented in critical status due to significant vaginal hemorrhage requiring Methergine. The patient required rapid exam, decision making, and frequent re-evaluations during their time in the Emergency Department. Total Critical Care time exclusive of all other billable procedure time provided by myself 47 minutes. 0400 Procedure note: Removal of products of conception After informed consent obtained from the patient and with the nurse standby the patient was placed in the lithotomy position on the bed. Suction was there for clearing of all of blood clots. With ring forceps and after visualization with speculum removed products of conception and blood clots from the cervical os which was dilated prior to my exam. Decreased blood flow. Complications: None 05:[address] Marshall at bedside. 05:[address] Theo aguila. Has seen this COATING INSPECTOR in past. 05:[address] Jarvis. She will come straight away to see patient. Nurse reports SBP 79. Pt is awake and alert and talking with me c/o pelvic cramping 06:05 AM SBP improved to >110. 07:[address] Jarvis repeated the speculum exam and feels that the patient is still having significant bleeding. She would like to come to the operating room for dilation and curage
[2020-08-16] MEDS ORDERED: Morphine 10 MG/ML Syringe ONE (05:31)
[2020-08-16] MEDS ORDERED: Morphine 10 MG/ML Syringe IVPUSH ONE (05:34)
[2020-08-16] MEDS ORDERED: Sodium Chloride 0.9% 500 ML IV SCH (06:00)
[2020-08-16] MEDS ORDERED: Sodium Chloride 0.9% 1,000 ML IV SCH (06:01)
[2020-08-16] MEDS ORDERED: Sodium Chloride 0.9% 10 ML SDV IV PRN ×2 (07:05→07:25)
[2020-08-16] MEDS ORDERED: Sodium Chloride 0.9% 2.5 ML Syringe FLUSH PRN ×2 (07:05→07:25)
[2020-08-16] MEDS ORDERED: Sodium Chloride 0.9% 10 ML Syringe FLUSH PRN ×2 (07:05→07:25)
[2020-08-16] MEDS ORDERED: Doxycycline 100 MG Cap PO ONE ×2 (07:19→09:06)
[2020-08-16] MEDS ORDERED: Midazolam 1 MG/ML 2 ML SDV ONE (07:28)
[2020-08-16] MEDS ORDERED: fentaNYL 100 MCG/2 ML SDV ONE (07:28)
[2020-08-16] MEDS ORDERED: Etomidate 2 MG/ML 20 ML SDV IVPUSH ONE (07:28)
[2020-08-16] MEDS ORDERED: Albumin 5% 250 ML Bottle ONE (07:30)
[2020-08-16] MEDS ORDERED: Carboprost Tromethamine 250 MCG/1 ML Amp ONE ×2 (07:31→07:41)
--- NOTE | 2020-08-16 07:31 | PCM.PREANE ---
Preanesthetic Assessment - Anesthesia/Transfusion/Family Hx Anesthesia History: Prior Anesthesia Without Reaction Family History of Anesthesia Reaction: No Transfusion History: No Prior Transfusion(s) Intubation History: Unknown - Review of Systems General: No Symptoms Pulmonary: No Symptoms Cardiovascular: No Symptoms Gastrointestinal: No Symptoms Neurological: No Symptoms Other: Reports: None - Physical Assessment Vital Signs: Last Vital Signs Temp 35.8 C L 08/16/20 03:02 Pulse 89 08/16/20 06:50 Resp 18 08/16/20 06:50 BP 86/62 L 08/16/20 06:50 Pulse Ox 98 08/16/20 06:50 Height: 5 ft 1 in Weight: 52.617 kg ASA Class: 2E Mental Status: Alert & Oriented x3 Airway Class: Mallampati = 2 Dentition: Reports: Normal Dentition Thyro-Mental Finger Breadths: 3 Mouth Opening Finger Breadths: 2 (small mouth) ROM/Head Extension: Full Lungs: Clear to Auscultation, Normal Respiratory Effort Cardiovascular: Regular Rate, Regular Rhythm - Lab Values: Laboratory Last Values WBC 10.89 K/uL (4.0-11.0) 08/16/20 03:15 RBC 4.66 M/uL (4.30-5.90) 08/16/20 03:15 Hgb 10.3 g/dL (12.0-16.0) L 08/16/20 06:26 Hct 30.3 % (36.0-46.0) L 08/16/20 06:26 MCV 81.3 fL (80.0-98.0) 08/16/20 03:15 MCH 27.0 pg (27.0-32.0) 08/16/20 03:15 MCHC 33.2 g/dL (31.0-37.0) 08/16/20 03:15 RDW Std Deviation 37.8 fl (28.0-62.0) 08/16/20 03:15 RDW Coeff of Ann-Marie 13 % (11.0-15.0) 08/16/20 03:15 Plt Count 373 K/uL (150-400) 08/16/20 03:15 MPV 9.10 fL (7.40-12.00) 08/16/20 03:15 Neut % (Auto) 76.9 % (48.0-80.0) 08/16/20 03:15 Lymph % (Auto) 16.3 % (16.0-40.0) 08/16/20 03:15 [place] % (Auto) 5.0 % (0.0-15.0) 08/16/20 03:15 Eos % (Auto) 1.4 % (0.0-7.0) 08/16/20 03:15 Baso % (Auto) 0.4 % (0.0-1.5) 08/16/20 03:15 Neut # (Auto) 8.4 K/uL (1.4-5.7) H 08/16/20 03:15 Lymph # (Auto) 1.8 K/uL (0.6-2.4) 08/16/20 03:15 [place] # (Auto) 0.5 K/uL (0.0-0.8) 08/16/20 03:15 Eos # (Auto) 0.2 K/uL (0.0-0.7) 08/16/20 03:15 Baso # (Auto) 0.0 K/uL (0.0-0.1) 08/16/20 03:15 Nucleated RBC % 0.0 /100WBC 08/16/20 03:15 Nucleated RBCs # 0 K/uL 08/16/20 03:15 Sodium 132 mmol/L (136-145) L 08/16/20 03:15 Potassium 3.2 mmol/L (3.5-5.1) L 08/16/20 03:15 Chloride 101 mmol/L (98-107) 08/16/20 03:15 Carbon Dioxide 23.8 mmol/L (21.0-32.0) 08/16/20 03:15 BUN 9 mg/dL (7.0-18.0) 08/16/20 03:15 Creatinine 0.8 mg/dL (0.6-1.0) 08/16/20 03:15 Est Cr Clr Drug Dosing 78.30 mL/min 08/16/20 03:15 Estimated GFR (MDRD) > 60.0 ml/min 08/16/20 03:15 Glucose 125 mg/dL (74-106) H 08/16/20 03:15 Calcium 8.7 mg/dL (8.5-10.1) 08/16/20 03:15 Total Bilirubin 0.4 mg/dL (0.2-1.0) 08/16/20 03:15 AST 14 IU/L (15-37) L 08/16/20 03:15 ALT 31 IU/L (14-63) 08/16/20 03:15 Alkaline Phosphatase 47 U/L (46-116) 08/16/20 03:15 Total Protein 7.1 g/dL (6.4-8.2) 08/16/20 03:15 Albumin 3.7 g/dL (3.4-5.0) 08/16/20 03:15 Globulin 3.4 g/dL (2.6-4.0) 08/16/20 03:15 Albumin/Globulin Ratio 1.1 (0.9-1.6) 08/16/20 03:15 HCG, Quant 616.0 mIU/mL 08/16/20 03:15 Blood Type B POSITIVE 08/16/20 03:38 Antibody Screen NEGATIVE 08/16/20 03:38 Crossmatch See Detail 08/16/20 03:38 - Allergies Allergies/Adverse Reactions: Allergies Allergy/AdvReac Type Severity Reaction Status Date / Time No Known Allergies Allergy Verified 11/16/19 05:37 - Blood Blood Available: No - Anesthesia Plan Pre-Op Medication Ordered: None - Acknowledgements Anesthesia Type Planned: General Anesthesia Pt an Appropriate Candidate for the Planned Anesthesia: Yes Alternatives and Risks of Anesthesia Discussed w Pt/Guardian: Yes Pt/Guardian Understands and Agrees with Anesthesia Plan: Yes PreAnesthesia Questionnaire - Past Health History Medical/Surgical History: Denies Medical/Surgical History HEENT History: Reports: Other (See Below) Other HEENT History: wears contacts/glasses Cardiovascular History: Reports: None Respiratory History: Reports: None Gastrointestinal History: Reports: None Genitourinary History: Reports: Renal Calculus Other Genitourinary History: hx kidney stone 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: , 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 (See Below) (profuse uterine bleeding) Musculoskeletal History: Reports: None Neurological History: Reports: None Psychiatric History: Reports: Anxiety, Depression Endocrine/Metabolic History: Reports: None Hematologic History: Reports: None Immunologic History: Reports: None Oncologic (Cancer) History: Reports: None Dermatologic History: Reports: None - Infectious Disease History Infectious Disease History: Reports: None - Past Surgical History Head Surgeries/Procedures: Reports: None HEENT Surgical History: Reports: Oral Surgery Cardiovascular Surgical History: Reports: None Respiratory Surgical History: Reports: None GI Surgical History: Reports: Appendectomy Female Surgical History: Reports: Section Endocrine Surgical History: Reports: None Neurological Surgical History: Reports: None Musculoskeletal Surgical History: Reports: None Oncologic Surgical History: Reports: None Dermatological Surgical History: Reports: None - SUBSTANCE USE Tobacco Use Status *Q: Never Tobacco User Second Hand Smoke Exposure: No Recreational Drug Use History: No - HOME MEDS Home Medications: Home Meds . [No Known Home Meds] 08/16/20 [History] - CURRENT (IN HOUSE) MEDS Current Meds: Current Medications Sodium Chloride (Normal Saline) 1,000 mls @ 999 mls/hr IV .BOLUS SADIQ Last Admin: 08/16/20 06:01 Dose: 999 mls/hr Documented by: Sodium Chloride (Saline Flush) 10 ml FLUSH ASDIRECTED PRN PRN Reason: Keep Vein Open Sodium Chloride (Saline Flush) 2.5 ml FLUSH ASDIRECTED PRN PRN Reason: Keep Vein Open Sodium Chloride (Normal Saline) 10 ml IV ASDIRECTED PRN PRN Reason: IV Use Sodium Chloride (Saline Flush) 10 ml FLUSH ASDIRECTED PRN PRN Reason: Keep Vein Open Sodium Chloride (Saline Flush) 2.5 ml FLUSH ASDIRECTED PRN PRN Reason: Keep Vein Open Sodium Chloride (Normal Saline) 10 ml IV ASDIRECTED PRN PRN Reason: IV Use Discontinued Medications Doxycycline Hyclate (Vibramycin) 200 mg PO ONETIME ONE Stop: 08/16/20 07:20 Hydromorphone HCl (Dilaudid) 1 mg IVPUSH ONETIME ONE Stop: 08/16/20 04:54 Last Admin: 08/16/20 05:01 Dose: 1 mg Documented by: Sodium Chloride (Normal Saline) 1,000 mls @ 2,000 mls/hr IV .Bolus ONE Stop: 08/16/20 05:22 Last Admin: 08/16/20 05:01 Dose: 2,000 mls/hr Documented by: Sodium Chloride (Normal Saline) 1,000 mls @ 2,000 mls/hr IV .Bolus ONE Stop: 08/16/20 05:22 Last Admin: 08/16/20 05:01 Dose: 2,000 mls/hr Documented by: Sodium Chloride (Normal Saline) 500 mls @ 999 mls/hr IV .BOLUS SADIQ Methylergonovine Maleate (Methergine) 0.2 mg IM ONETIME ONE Stop: 08/16/20 04:28 Last Admin: 08/16/20 05:01 Dose: 0.2 mg Documented by: Morphine Sulfate (Morphine) Confirm Administered Dose 10 mg .ROUTE .STK-MED ONE Stop: 08/16/20 05:32 Last Admin: 08/16/20 05:37 Dose: Not Given Documented by: Morphine Sulfate (Morphine) 8 mg IVPUSH ONETIME ONE Stop: 08/16/20 05:35 Last Admin: 08/16/20 05:37 Dose: 8 mg Documented by: Ondansetron HCl (Zofran) 4 mg IVPUSH ONETIME ONE Stop: 08/16/20 05:15 Last Admin: 08/16/20 05:18 Dose: 4 mg Documented by:
[2020-08-16] MEDS ORDERED: ceFAZolin 1 GM Vial ONE (07:34)
[2020-08-16] MEDS ORDERED: Sodium Chloride 0.9% 20 ML ONE (07:34)
[2020-08-16] MEDS ORDERED: ePHEDrine 50 MG/ML SDV ONE (07:43)
--- NOTE | 2020-08-16 07:44 | EDM.PDOC ---
ED HPI GENERAL MEDICAL PROBLEM - General Chief Complaint: [employer] Problem Stated Complaint: BLEEDING Time Seen by Provider: 08/16/20 03:01 - History of Present Illness INITIAL COMMENTS - FREE TEXT/NARRATIVE: HISTORY AND PHYSICAL: History of present illness: 29yo @ approx 13 weeks , LMP April 2020. she presents to ED complaining of vaginal bleeding . she was somewhat dizzy when she present with BPs 80 - 110s/50 - 60 . USS done suspected complete with some heterogenicity within the endometrium. She has soaked about 4 pads in 1 hr in the ER. She has received about 3 liter of fluid., she states her dizziness is improved. Rh positive Review of systems: A 10-point review of systems, other than pertinent positives and negatives as stated per HPI, is otherwise negative. Past medical history: As per history of present illness and as reviewed below otherwise noncontributory. Surgical history: As per history of present illness and as reviewed below otherwise noncontributory. Social history: No reported history of drug or alcohol abuse. Family history: As per history of present illness and as reviewed below otherwise noncontributory. Physical exam: VITAL SIGNS: Reviewed. GENERAL: Appears to be in mild to moderate distress. Mild pallor. HEAD: No signs of head trauma. EYES: Pupils are equal. Extraocular motions intact. EARS: Hearing grossly intact. MOUTH: Oropharynx is normal. NECK: No adenopathy, no JVD. CHEST: Chest with clear breath sounds bilaterally. No wheezes, rales, or rhonchi. CARDIAC: Regular rate and rhythm. Normal S1 and S2, without murmurs, gallops, or rubs. ABDOMEN: Soft, mild pelvic tenderness, no distention, rebound or guarding. No masses palpated. MUSCULOSKELETAL: Good range of motion of all major joints. Extremities without clubbing, cyanosis or edema. Pelvic exam: 10 week sized anteverted uterus . Speculum: Large amount of blood and clots in the posterior fornix. some clots removed VSS_ 110s/60s A/P: 29yo @ 13 with incomplete , RH positive, Hypotension resolving Plan Patient consented for D & C Oral Doxycycline 200mg before surgery and 100mg after IVF . abdominal Pain Score (Numeric/FACES): 7 - Related Data Allergies Allergy/AdvReac Type Severity Reaction Status Date / Time No Known Allergies Allergy Verified 11/16/19 05:37 Home Meds: Home Meds . [No Known Home Meds] 08/16/20 [History] Past Medical History - Past Health History Medical/Surgical History: Denies Medical/Surgical History HEENT History: Reports: Other (See Below) Other HEENT History: wears contacts/glasses Cardiovascular History: Reports: None Respiratory History: Reports: None Gastrointestinal History: Reports: None Genitourinary History: Reports: Renal Calculus Other Genitourinary History: hx kidney stone [employer] History: Reports: Musculoskeletal History: Reports: None Neurological History: Reports: None Psychiatric History: Reports: Anxiety, Depression Endocrine/Metabolic History: Reports: None Hematologic History: Reports: None Immunologic History: Reports: None Oncologic (Cancer) History: Reports: None Dermatologic History: Reports: None - Infectious Disease History Infectious Disease History: Reports: None - Past Surgical History Head Surgeries/Procedures: Reports: None HEENT Surgical History: Reports: Oral Surgery Cardiovascular Surgical History: Reports: None Respiratory Surgical History: Reports: None GI Surgical History: Reports: Appendectomy Female Surgical History: Reports: Section Endocrine Surgical History: Reports: None Neurological Surgical History: Reports: None Musculoskeletal Surgical History: Reports: None Oncologic Surgical History: Reports: None Dermatological Surgical History: Reports: None Social & Family History - Family History HEENT: Reports: None GI: Reports: None : Reports: None OBGYN: Reports: None Musculoskeletal: Reports: None Oncologic: Reports: Lung - Tobacco Use Tobacco Use Status *Q: Never Tobacco User Second Hand Smoke Exposure: No - Caffeine Use Caffeine Use: Reports: Coffee - Recreational Drug Use Recreational Drug Use: No ED ROS GENERAL - Review of Systems Review Of Systems: Comprehensive ROS is negative, except as noted in HPI. ED EXAM - Physical Exam Exam: See Below (in hpi) Course - Vital Signs Last Recorded V/S: Last Vital Signs Temp 35.8 C L 08/16/20 03:02 Pulse 89 08/16/20 06:50 Resp 18 08/16/20 06:50 BP 86/62 L 08/16/20 06:50 Pulse Ox 98 08/16/20 06:50 - Orders/Labs/Meds Orders: Active Orders 24 hr Category Date Time Status Patient Status [ADT] Routine ADT 08/16/20 07:26 Ordered Antiembolic Devices [RC] PER UNIT ROUTINE Care 08/16/20 07:27 Ordered Verify Patient Consent Obtain [RC] ASDIRECTED Care 08/16/20 07:06 Active Verify Patient Consent Obtain [RC] PER UNIT ROUTINE Care 08/16/20 07:26 Ordered Vital Signs [RC] PER UNIT ROUTINE Care 08/16/20 07:26 Ordered Nothing per Oral Now Diet [DIET] Diet 08/16/20 Breakfast Active CORONAVIRUS COVID-19 ZAIRE [MOLEC] Stat Lab 08/16/20 07:10 Received CORONAVIRUS COVID-19 RAPID [MOLEC] Stat Lab 08/16/20 07:20 Received RED BLOOD CELLS LP [BBK] Stat Lab 08/16/20 03:38 Results TYPE AND SCREEN [BBK] Stat Lab 08/16/20 03:38 Results UA RFX SALMA AND CULT IF INDIC [URIN] Stat Lab 08/16/20 03:07 Ordered Sodium Chloride 0.9% [Normal Saline] Med 08/16/20 07:05 Active 10 ml IV ASDIRECTED PRN Sodium Chloride 0.9% [Normal Saline] Med 08/16/20 07:25 Ordered 10 ml IV ASDIRECTED PRN Sodium Chloride 0.9% [Normal Saline] 1,000 ml Med 08/16/20 06:01 Active IV .BOLUS Sodium Chloride 0.9% [Saline Flush] Med 08/16/20 07:05 Active 10 ml FLUSH ASDIRECTED PRN Sodium Chloride 0.9% [Saline Flush] Med 08/16/20 07:25 Ordered 10 ml FLUSH ASDIRECTED PRN Sodium Chloride 0.9% [Saline Flush] Med 08/16/20 07:05 Active 2.5 ml FLUSH ASDIRECTED PRN Sodium Chloride 0.9% [Saline Flush] Med 08/16/20 07:25 Ordered 2.5 ml FLUSH ASDIRECTED PRN Medication Administration Instruction [OM.PC] Routine Oth 08/16/20 07:06 Ordered Peripheral IV Insertion Adult [OM.PC] Routine Oth 08/16/20 07:05 Ordered Peripheral IV Insertion Adult [OM.PC] Urgent Oth 08/16/20 07:26 Ordered Sequential Compression Device [OM.PC] Per Unit Routine Oth 08/16/20 07:26 Ordered Medication Orders Sodium Chloride (Normal Saline) 1,000 mls @ 999 mls/hr IV .BOLUS SADIQ Last Admin: 08/16/20 06:01 Dose: 999 mls/hr Documented by: LENA Sodium Chloride (Saline Flush) 10 ml FLUSH ASDIRECTED PRN PRN Reason: Keep Vein Open Sodium Chloride (Saline Flush) 2.5 ml FLUSH ASDIRECTED PRN PRN Reason: Keep Vein Open Sodium Chloride (Normal Saline) 10 ml IV ASDIRECTED PRN PRN Reason: IV Use Sodium Chloride (Saline Flush) 10 ml FLUSH ASDIRECTED PRN PRN Reason: Keep Vein Open Sodium Chloride (Saline Flush) 2.5 ml FLUSH ASDIRECTED PRN PRN Reason: Keep Vein Open Sodium Chloride (Normal Saline) 10 ml IV ASDIRECTED PRN PRN Reason: IV Use Labs: Laboratory Tests 08/16/20 08/16/20 08/16/20 Range/Units 03:15 03:15 03:38 WBC 10.89 (4.0-11.0) K/uL RBC 4.66 (4.30-5.90) M/uL Hgb 12.6 (12.0-16.0) g/dL Hct 37.9 (36.0-46.0) % MCV 81.3 (80.0-98.0) fL MCH 27.0 (27.0-32.0) pg MCHC 33.2 (31.0-37.0) g/dL RDW Std Deviation 37.8 (28.0-62.0) fl RDW Coeff of Ann-Marie 13 (11.0-15.0) % Plt Count 373 (150-400) K/uL MPV 9.10 (7.40-12.00) fL Neut % (Auto) 76.9 (48.0-80.0) % Lymph % (Auto) 16.3 (16.0-40.0) % Spalding % (Auto) 5.0 (0.0-15.0) % Eos % (Auto) 1.4 (0.0-7.0) % Baso % (Auto) 0.4 (0.0-1.5) % Neut # (Auto) 8.4 H (1.4-5.7) K/uL Lymph # (Auto) 1.8 (0.6-2.4) K/uL Spalding # (Auto) 0.5 (0.0-0.8) K/uL Eos # (Auto) 0.2 (0.0-0.7) K/uL Baso # (Auto) 0.0 (0.0-0.1) K/uL Nucleated RBC % 0.0 /100WBC Nucleated RBCs # 0 K/uL Sodium 132 L (136-145) mmol/L Potassium 3.2 L (3.5-5.1) mmol/L Chloride 101 (98-107) mmol/L Carbon Dioxide 23.8 (21.0-32.0) mmol/L BUN 9 (7.0-18.0) mg/dL Creatinine 0.8 (0.6-1.0) mg/dL Est Cr Clr Drug Dosing 78.30 mL/min Estimated GFR (MDRD) > 60.0 ml/min Glucose 125 H (74-106) mg/dL Calcium 8.7 (8.5-10.1) mg/dL Total Bilirubin 0.4 (0.2-1.0) mg/dL AST 14 L (15-37) IU/L ALT 31 (14-63) IU/L Alkaline Phosphatase 47 (46-116) U/L Total Protein 7.1 (6.4-8.2) g/dL Albumin 3.7 (3.4-5.0) g/dL Globulin 3.4 (2.6-4.0) g/dL Albumin/Globulin Ratio 1.1 (0.9-1.6) HCG, Quant 616.0 mIU/mL Blood Type B POSITIVE Antibody Screen NEGATIVE Crossmatch See Detail 08/16/20 Range/Units 06:26 WBC (4.0-11.0) K/uL RBC (4.30-5.90) M/uL Hgb 10.3 L (12.0-16.0) g/dL Hct 30.3 L (36.0-46.0) % MCV (80.0-98.0) fL MCH (27.0-32.0) pg MCHC (31.0-37.0) g/dL RDW Std Deviation (28.0-62.0) fl RDW Coeff of Ann-Marie (11.0-15.0) % Plt Count (150-400) K/uL MPV (7.40-12.00) fL Neut % (Auto) (48.0-80.0) % Lymph % (Auto) (16.0-40.0) % Spalding % (Auto) (0.0-15.0) % Eos % (Auto) (0.0-7.0) % Baso % (Auto) (0.0-1.5) % Neut # (Auto) (1.4-5.7) K/uL Lymph # (Auto) (0.6-2.4) K/uL Spalding # (Auto) (0.0-0.8) K/uL Eos # (Auto) (0.0-0.7) K/uL Baso # (Auto) (0.0-0.1) K/uL Nucleated RBC % /100WBC Nucleated RBCs # K/uL Sodium (136-145) mmol/L Potassium (3.5-5.1) mmol/L Chloride (98-107) mmol/L Carbon Dioxide (21.0-32.0) mmol/L BUN (7.0-18.0) mg/dL Creatinine (0.6-1.0) mg/dL Est Cr Clr Drug Dosing mL/min Estimated GFR (MDRD) ml/min Glucose (74-106) mg/dL Calcium (8.5-10.1) mg/dL Total Bilirubin (0.2-1.0) mg/dL AST (15-37) IU/L ALT (14-63) IU/L Alkaline Phosphatase (46-116) U/L Total Protein (6.4-8.2) g/dL Albumin (3.4-5.0) g/dL Globulin (2.6-4.0) g/dL Albumin/Globulin Ratio (0.9-1.6) HCG, Quant mIU/mL Blood Type Antibody Screen Crossmatch Meds: Medications Generic Name Dose Route Start Last Admin Trade Name Freq PRN Reason Stop Dose Admin Sodium Chloride 1,000 mls @ 999 mls/hr 08/16/20 06:01 08/16/20 06:01 Normal Saline IV 999 mls/hr .BOLUS SADIQ Administration Sodium Chloride 10 ml 08/16/20 07:05 Saline Flush FLUSH ASDIRECTED PRN Keep Vein Open Sodium Chloride 2.5 ml 08/16/20 07:05 Saline Flush FLUSH ASDIRECTED PRN Keep Vein Open Sodium Chloride 10 ml 08/16/20 07:05 Normal Saline IV ASDIRECTED PRN IV Use Sodium Chloride 10 ml 08/16/20 07:25 Saline Flush FLUSH ASDIRECTED PRN Keep Vein Open Sodium Chloride 2.5 ml 08/16/20 07:25 Saline Flush FLUSH ASDIRECTED PRN Keep Vein Open Sodium Chloride 10 ml 08/16/20 07:25 Normal Saline IV ASDIRECTED PRN IV Use Discontinued Medications Generic Name Dose Route Start Last Admin Trade Name Freq PRN Reason Stop Dose Admin Doxycycline Hyclate 200 mg 08/16/20 07:19 Vibramycin PO 08/16/20 07:20 ONETIME ONE Hydromorphone HCl 1 mg 08/16/20 04:53 08/16/20 05:01 Dilaudid IVPUSH 08/16/20 04:54 1 mg ONETIME ONE Administration Sodium Chloride 1,000 mls @ 2,000 mls/hr 08/16/20 04:53 08/16/20 05:01 Normal Saline IV 08/16/20 05:22 2,000 mls/hr .Bolus ONE Administration Sodium Chloride 1,000 mls @ 2,000 mls/hr 08/16/20 04:53 08/16/20 05:01 Normal Saline IV 08/16/20 05:22 2,000 mls/hr .Bolus ONE Administration Sodium Chloride 500 mls @ 999 mls/hr 08/16/20 06:00 Normal Saline IV .BOLUS SADIQ Methylergonovine Maleate 0.2 mg 08/16/20 04:27 08/16/20 05:01 Methergine IM 08/16/20 04:28 0.2 mg ONETIME ONE Administration Morphine Sulfate Confirm 08/16/20 05:31 08/16/20 05:37 Morphine Administered 08/16/20 05:32 Not Given Dose 10 mg .ROUTE .STK-MED ONE Morphine Sulfate 8 mg 08/16/20 05:34 08/16/20 05:37 Morphine IVPUSH 08/16/20 05:35 8 mg ONETIME ONE Administration Ondansetron HCl 4 mg 08/16/20 05:14 08/16/20 05:18 Zofran IVPUSH 08/16/20 05:15 4 mg ONETIME ONE Administration Departure - Departure Time of Disposition: 07:45 Disposition: Home, Self-Care 01 Clinical Impression: Miscarriage, Blood type B+ - Discharge Information *PRESCRIPTION DRUG MONITORING PROGRAM REVIEWED*: Not Applicable *COPY OF PRESCRIPTION DRUG MONITORING REPORT IN PATIENT SYDNI: Not Applicable Instructions: Miscarriage, [id number] Referrals: PCP,None [Primary Care Provider] - Forms: ED Department Discharge Additional Instructions: The following information is given to patients seen in the emergency department who are being discharged to home. This information is to outline your options for follow-up care. We provide all patients seen in our emergency department with a follow-up referral. The need for follow-up, as well as the timing and circumstances, are variable depending upon the specifics of your emergency department visit. If you don't have a primary care physician on staff, we will provide you with a referral. We always advise you to contact your personal physician following an emergency department visit to inform them of the circumstance of the visit and for follow-up with them and/or the need for any referrals to a consulting specialist. The emergency department will also refer you to a specialist when appropriate. This referral assures that you have the opportunity for follow-up care with a specialist. All of these measure are taken in an effort to provide you with optimal care, which includes your follow-up. Thank you for coming to the [facility] urgency department for your care today. It was Dr. Lake's pleasure to take care of you. [facility] [address] [place] [address] [facility] [address] [place] [address] It appears that you have had a miscarriage today. Return for fever, signs of infection, persistent pain, persistent bleeding or any other concerns. Your ultrasound shows no evidence of an ectopic . Your blood type is B+. Please follow-up with your [employer] doctor. Under all circumstances we always encourage you to contact your private physician who remains a resource for coordinating your care. When calling for follow-up care, please make the office aware that this follow-up is from your recent emergency room visit. If for any reason you are refused follow-up, please contact the [facility] Emergency Department at and asked to speak to the emergency department charge nurse. Sepsis Event Note (ED) - Evaluation Sepsis Screening Result: No Definite Risk - Focused Exam Vital Signs: Vital Signs Temp Pulse Resp BP Pulse Ox 08/16/20 06:50 89 18 86/62 L 98 08/16/20 06:02 86 16 104/58 L 98 08/16/20 05:39 97 20 79/49 L 98 08/16/20 05:25 90 18 88/52 L 99 08/16/20 05:14 90 16 89/48 L 97 08/16/20 04:29 84 14 117/52 L 99 08/16/20 03:02 35.8 C L 97 18 90/45 L 99 - Problem List & Annotations (1) Miscarriage SNOMED Code(s): 75377737 Code(s): O03.9 - COMPLETE OR UNSP SPONTANEOUS WITHOUT COMPLICATION Status: Acute Current Visit: Yes - My Orders Last 24 Hours: My Active Orders 08/16/20 07:25 Sodium Chloride 0.9% [Normal Saline] 10 ml IV ASDIRECTED PRN Sodium Chloride 0.9% [Saline Flush] 10 ml FLUSH ASDIRECTED PRN Sodium Chloride 0.9% [Saline Flush] 2.5 ml FLUSH ASDIRECTED PRN 08/16/20 07:26 Patient Status [ADT] Routine Verify Patient Consent Obtain [RC] PER UNIT ROUTINE Vital Signs [RC] PER UNIT ROUTINE Peripheral IV Insertion Adult [OM.PC] Urgent Sequential Compression Device [OM.PC] Per Unit Routine 08/16/20 07:27 Antiembolic Devices [RC] PER UNIT ROUTINE - Assessment/Plan Last 24 Hours: My Active Orders 08/16/20 07:25 Sodium Chloride 0.9% [Normal Saline] 10 ml IV ASDIRECTED PRN Sodium Chloride 0.9% [Saline Flush] 10 ml FLUSH ASDIRECTED PRN Sodium Chloride 0.9% [Saline Flush] 2.5 ml FLUSH ASDIRECTED PRN 08/16/20 07:26 Patient Status [ADT] Routine Verify Patient Consent Obtain [RC] PER UNIT ROUTINE Vital Signs [RC] PER UNIT ROUTINE Peripheral IV Insertion Adult [OM.PC] Urgent Sequential Compression Device [OM.PC] Per Unit Routine 08/16/20 07:27 Antiembolic Devices [RC] PER UNIT ROUTINE Assessment:: See HPI
[2020-08-16] MEDS ORDERED: Misoprostol 200 MCG Tab ONE (08:11)
[2020-08-16] MEDS ORDERED: Naloxone 0.4 MG/ML Syringe IVPUSH PRN (08:24)
[2020-08-16] MEDS ORDERED: fentaNYL 100 MCG/2 ML SDV IVPUSH PRN (08:24)
[2020-08-16] MEDS ORDERED: 50% Dextrose in Water 50 ML Syringe IVPUSH PRN (08:24)
[2020-08-16] MEDS ORDERED: Albuterol 0.083% 2.5 MG/3 ML Neb Soln NEB PRN (08:24)
[2020-08-16] MEDS ORDERED: EPINEPHrine 1:10,000 1 MG/10 ML Syringe IVPUSH PRN (08:24)
[2020-08-16] MEDS ORDERED: Atropine 0.1 MG/ML 10 ML Syringe IVPUSH PRN ×2 (08:24)
[2020-08-16] MEDS ORDERED: Oxytocin 10 Units/1 ML SDV ONE (08:33)
--- NOTE | 2020-08-16 08:49 | PCM.POSTAN ---
POST ANESTHESIA ASSESSMENT - MENTAL STATUS Mental Status: Alert, Oriented - VITAL SIGNS Vital Signs: Last Vital Signs Temp 37.2 C 08/16/20 08:26 Pulse 108 H 08/16/20 08:41 Resp 12 08/16/20 08:41 BP 97/41 L 08/16/20 08:41 Pulse Ox 96 08/16/20 08:41 - RESPIRATORY Respiratory Status: Respiratory Rate WNL, Airway Patent, O2 Saturation Stable - CARDIOVASCULAR CV Status: Pulse Rate WNL, Blood Pressure Stable - GASTROINTESTINAL GI Status: No Symptoms - PAIN Pain Score: 0 - POST OP HYDRATION Hydration Status: Adequate & Stable - OBSERVATIONS Free Text/Narrative:: No anesthesia problems
--- NOTE | 2020-08-16 08:55 | PCM.OPNOTE ---
- General Post-Op/Procedure Note Date of Surgery/Procedure: 08/16/20 Operative Procedure(s): Suction Currettage Findings: EUA showed 13 week sized uterus with some bleeding noted in the vagina Moderate product of conception retrieved , sent for chromosomes and permanent Pre Op Diagnosis: 29yo @ 13weeks with Incomplete . Hypotension resolving Post-Op Diagnosis: same Anesthesia Technique: General ET Tube Primary Surgeon: Ron Jarvis Anesthesia Provider: Arvind Govea Pathology: Products of conception Fluid Replacement, Intraop: 1,000 EBL in mLs: 100 Complications: None Condition: Stable Free Text/Narrative:: Intake & Output 08/15/20 08/16/20 08/16/20 22:59 06:59 14:59 Intake Total 1500 Balance 1500
[2020-08-16] MEDS ORDERED: Ketorolac 30 MG/ML SDV IVPUSH ONE (09:05)
[2020-08-16] MEDS ORDERED: Promethazine 25 MG/ML SDV IM PRN (09:05)
[2020-08-16] MEDS ORDERED: Ondansetron 4 MG/2 ML SDV IVPUSH PRN (09:05)
[2020-08-16] MEDS ORDERED: Ketorolac 30 MG/ML SDV IVPUSH PRN (09:05)
[2020-08-16] MEDS ORDERED: Acetaminophen/oxyCODONE 325-5 MG Tab PO PRN ×2 (09:05)
[2020-08-16] MEDS ORDERED: Morphine 4 MG/ML Syringe IVPUSH PRN (09:05)
--- NOTE | 2020-08-16 10:05 | PCM48HPAN ---
Post Anesthesia Note - EVALUATION WITHIN 48HRS OF ANESTHETIC Vital Signs in Normal Range: Yes Patient Participated in Evaluation: Yes Respiratory Function Stable: Yes Airway Patent: Yes Cardiovascular Function Stable: Yes Hydration Status Stable: Yes Pain Control Satisfactory: Yes Nausea and Vomiting Control Satisfactory: Yes Mental Status Recovered: Yes Vital Signs: Last Vital Signs Temp 37.2 C 08/16/20 08:26 Pulse 100 08/16/20 08:46 Resp 15 08/16/20 08:46 BP 99/48 L 08/16/20 08:46 Pulse Ox 99 08/16/20 08:46 - COMMENTS/OBSERVATIONS Free Text/Narrative:: No anesthesia problems
[2020-08-16 11:06] VITALS: BP 100/64; PULSE 102
--- NOTE | 2020-08-16 12:37 | OR ---
SURGEON: TIMA PATEL DATE OF PROCEDURE: 08/16/2020 PREOPERATIVE DIAGNOSIS: A 29-year-old, G5, P 2-0-2-2, at 13 weeks with incomplete . POSTOPERATIVE DIAGNOSIS: A 29-year-old, G5, P 2-0-2-2, at 13 weeks with incomplete . PROCEDURE: Suction and curettage. ESTIMATED BLOOD LOSS: 500. IV FLUID: Pitocin running. URINE OUTPUT: 30 mL. NOTES AND FINDINGS: A 13-week size anteverted uterus. On the examination under anesthesia, moderate amount of blood noted in the vaginal canal, the cervical os was open. BRIEF HISTORY ABOUT THE PATIENT: A 29-year-old, LMP was May 13, came in complaining of bleeding all of a sudden, which started some hours prior. Once she came to the ER, she was noted to have some heavy bleeding. She had ultrasound done that showed heterogeneous structure, endometrium was 14 mm. Impression was complete AB. However, the patient was bleeding, soaking through all four pads in an hour. She had some hypotensive episodes of blood pressures between 90s / 60s. She received IV fluid. Initial OB on-call was consulted, Dr. Marshall, who recommended Methergine, and if continued bleeding, should be seen. The patient was then evaluated by me, noted to have some products in the os and had some moderate amount of bleeding. As a result of this, the patient was consented for suction D and C. Prior to this, H and H were done and there was a drop from 12 to 10. The patient was not tachycardic. She was explained the risks, benefits, and alternatives, and she decided to proceed. She also wanted chromosome analysis done. DESCRIPTION OF PROCEDURE: The patient was taken to the operating room where general anesthesia was performed without difficulty. She was prepared and draped in the dorsal lithotomy position with Nguyễn stirrups. The speculum was used to expose the cervix. The cervix was grasped, the anterior lip was grasped with Allis clamp. A size 11 curved curette was placed in all the way to the fundus and with rotating pressure product of conception was retrieved. A size 5 curette was then used to curette all the bautista of the uterus. Suction curettage was then reintroduced and the remaining product was then suctioned out. Then moderate amount of bleeding was still noted. The patient was given Methergine 0.2 IM. Pitocin was added to her drip, 20 milliunits. She was then placed. The Cytotec was placed in the rectum and tranexamic acid was given. Bleeding was noted to be normal after the procedure. The patient tolerated the procedure well. All instrument and pad counts were correct x2. CHECO / SANDY /[id number] MTDD
== END 2020-08-16 10:35 | disposition home or self-care (01) ==
LOC: MW.ED 02:37 → MW.SDS 07:28
PROVIDERS: ATTEND Obstetrics & Gynecology
DX: O03.4 Incomplete spontaneous abortion without complication (principal); Z01.812 Encounter for preprocedural laboratory examination; Z20.828 Contact with and (suspected) exposure to other viral communicable diseases
CPT/HCPCS: 36415; 59812; 76817; 80053; 84702; 85014; 85018; 85025; 86850; 86900; 86901; 86920; 86921; 86922; 87635; 88233; 88305; 96372; 96374; 96375; 99284; A9270; J1170; J2210; J2250; J2270; J2405; J2590; J3490; J7030; J7040; P9045; J0690; J3010; U0002

== ENCOUNTER 2021-01-03 17:21 | Observation (INO) | payer BC ==
[2021-01-03] MEDS ORDERED: Sodium Chloride 0.9% 10 ML Syringe FLUSH PRN (17:30)
[2021-01-03] MEDS ORDERED: Methylergonovine 0.2 MG/1 ML Amp IM PRN (17:30)
[2021-01-03] MEDS ORDERED: Sodium Chloride 0.9% 10 ML SDV IV PRN (17:30)
[2021-01-03] MEDS ORDERED: Carboprost Tromethamine 250 MCG/1 ML Amp IM PRN (17:30)
[2021-01-03] MEDS ORDERED: Misoprostol 200 MCG Tab PO PRN (17:30)
[2021-01-03] MEDS ORDERED: Acetaminophen 500 MG Tab PO PRN (17:30)
[2021-01-03] MEDS ORDERED: Sodium Chloride 0.9% 2.5 ML Syringe FLUSH PRN (17:30)
[2021-01-03] MEDS ORDERED: Ondansetron 4 MG/2 ML SDV IVPUSH PRN (17:30)
[2021-01-03] MEDS ORDERED: Tranexamic Acid 1,000 MG in Sodium Chloride 0.9% 100 ML IV PRN (17:41)
[2021-01-03] MEDS ORDERED: Oxytocin/0.9 % Sodium Chloride 30 UNIT/500 ML BAG IV SCH (17:45)
[2021-01-03] MEDS ORDERED: Misoprostol 200 MCG Tab VAG SCH (17:45)
[2021-01-03] MEDS: Butorphanol 1 MG/ML SDV IVPUSH PRN ×2 (21:18→22:19)
[2021-01-04] MEDS ORDERED: Ibuprofen 800 MG Tab PO PRN (02:08)
[2021-01-04] MEDS ORDERED: Benzocaine/Menthol 20%-0.5% Spray 78 GM Cannister TOP PRN (02:08)
[2021-01-04] MEDS ORDERED: oxyCODONE 5 MG Tab PO PRN (02:08)
[2021-01-04] MEDS ORDERED: Witch Hazel Medicated Pads 40/Jar TOP PRN (02:08)
[2021-01-04] MEDS ORDERED: Ibuprofen 400 MG Tab PO PRN (02:08)
[2021-01-04] MEDS ORDERED: Acetaminophen 500 MG Tab PO PRN ×2 (02:08)
--- NOTE | 2021-01-04 02:12 | PCM.OPNOTE ---
- General Post-Op/Procedure Note Date of Surgery/Procedure: 01/04/21 Operative Procedure(s): /IP Findings: Non viable, apparent female weight 90 gm. Delivery intact placenta with cord. Will be sent to pathology. Fetus appears edematous/mildly hydropic. No gross anomalies observed with exam. Pre Op Diagnosis: 17 week demise Post-Op Diagnosis: Same EBL in mLs: 100 Complications: none known Condition: Good
[2021-01-04 08:22] VITALS: BP 101/61; PULSE 86
--- NOTE | 2021-01-04 08:49 | PCM.PNPP ---
- General Info Date of Service: 01/04/21 Functional Status: Reports: Pain Controlled, Tolerating Diet, Ambulating, Urinating - Review of Systems General: Reports: Fatigue. Denies: Fever, Weakness Pulmonary: Denies: Shortness of Breath Cardiovascular: Denies: Chest Pain, Palpitations, Lightheadedness Gastrointestinal: Denies: Abdominal Pain, Nausea, Vomiting Genitourinary: Denies: Flank Pain Musculoskeletal: Reports: No Symptoms Skin: Reports: No Symptoms Neurological: Reports: No Symptoms Psychiatric: Reports: Other (sad) - General Info Date of Service: 01/04/21 - Patient Data Vital Signs - Most Recent: Last Vital Signs Temp 36.7 C 01/04/21 08:00 Pulse 86 01/04/21 08:00 Resp 16 01/04/21 08:00 BP 101/61 01/04/21 08:00 Pulse Ox 97 01/04/21 08:00 Weight - Most Recent: 71.214 kg Lab Results - Last 24 Hours: Laboratory Results - last 24 hr 01/03/21 01/03/21 01/03/21 Range/Units 18:20 18:20 18:20 WBC 7.34 (4.0-11.0) K/uL RBC 4.63 (4.30-5.90) M/uL Hgb 10.0 L (12.0-16.0) g/dL Hct 32.2 L (36.0-46.0) % MCV 69.5 L (80.0-98.0) fL MCH 21.6 L (27.0-32.0) pg MCHC 31.1 (31.0-37.0) g/dL RDW Std Deviation 39.5 (28.0-62.0) fl RDW Coeff of Ann-Marie 16 H (11.0-15.0) % Plt Count 492 H (150-400) K/uL MPV 9.30 (7.40-12.00) fL Nucleated RBC % 0.0 /100WBC Nucleated RBCs # 0 K/uL APTT 24.1 (18.6-31.3) SEC Fibrinogen 377 (215-411) mg/dL Hemoglobin A1c (4.5 - 6.2) % TSH 3rd Generation 0.81 (0.36-3.74) uIU/mL SARS-CoV-2 RNA (ZAIRE) (NEGATIVE) Blood Type Antibody Screen 01/03/21 01/03/21 01/03/21 Range/Units 18:20 18:26 19:38 WBC (4.0-11.0) K/uL RBC (4.30-5.90) M/uL Hgb (12.0-16.0) g/dL Hct (36.0-46.0) % MCV (80.0-98.0) fL MCH (27.0-32.0) pg MCHC (31.0-37.0) g/dL RDW Std Deviation (28.0-62.0) fl RDW Coeff of Ann-Marie (11.0-15.0) % Plt Count (150-400) K/uL MPV (7.40-12.00) fL Nucleated RBC % /100WBC Nucleated RBCs # K/uL APTT (18.6-31.3) SEC Fibrinogen (215-411) mg/dL Hemoglobin A1c 5.0 (4.5 - 6.2) % TSH 3rd Generation (0.36-3.74) uIU/mL SARS-CoV-2 RNA (ZAIRE) NEGATIVE (NEGATIVE) Blood Type B POSITIVE Antibody Screen NEGATIVE - Infant Interaction Support Person: - Recovery Exam Fundal Level: Unable to Assess Lochia Amount: Scant Lochia Color: Rubra/Red Perineum Description: Intact, Minimal Bruising/Swelling Episiotomy/Laceration: None Bladder Status: Voiding - Exam General: Alert, Oriented Lungs: Normal Respiratory Effort Cardiovascular: Regular Rate, Regular Rhythm GI/Abdominal Exam: Normal Bowel Sounds, Soft Extremities: Pedal Edema (trace), Henrry's Sign Skin: Warm, Dry, Intact Neurological: No New Focal Deficit Psy/Mental Status: Other (sad, appropriately grieving) - Problem List & Annotations (1) demise before 20 weeks with retention of fetus SNOMED Code(s): 328372879 Code(s): O02.1 - MISSED Status: Acute Current Visit: Yes - Problem List Review Problem List Initiated/Reviewed/Updated: Yes - My Orders Last 24 Hours: My Active Orders 01/03/21 17:30 May Shower [RC] ASDIRECTED Up ad Magdalene [RC] ASDIRECTED Butorphanol [Stadol] 1 mg IVPUSH Q1H PRN Carboprost Tromethamine [Hemabate DS] 250 mcg IM ASDIRECTED PRN Methylergonovine [Methergine] 0.2 mg IM ASDIRECTED PRN Ondansetron [Zofran] 4 mg IVPUSH Q6H PRN Sodium Chloride 0.9% [Normal Saline] 10 ml IV ASDIRECTED PRN Sodium Chloride 0.9% [Saline Flush] 10 ml FLUSH ASDIRECTED PRN Sodium Chloride 0.9% [Saline Flush] 2.5 ml FLUSH ASDIRECTED PRN miSOPROStoL [Cytotec] 200 mcg PO ONETIME PRN Peripheral IV Insertion Adult [OM.PC] Routine Resuscitation Status Routine 01/03/21 17:31 Patient Status [ADT] Routine Vital Signs [RC] PER UNIT ROUTINE 01/03/21 17:41 Tranexamic Acid [Cyklokapron] 1,000 mg Sodium Chloride 0.9% [Normal Saline] 100 ml IV ONETIME 01/03/21 17:45 Oxytocin/0.9 % Sodium Chloride [Oxytocin 30 Unit/500 ML-NS] 30 unit in 500 ml IV TITRATE miSOPROStoL [Cytotec] 800 mcg VAG Q6H 01/04/21 02:08 Acetaminophen [Tylenol Extra Strength] 1,000 mg PO Q4H PRN Acetaminophen [Tylenol Extra Strength] 500 mg PO Q4H PRN Benzocaine/Menthol [Dermoplast Pain Relief 20%-0.5% [place]] 78 gm TOP ASDIRECTED PRN Ibuprofen [Motrin] 400 mg PO Q4H PRN Ibuprofen [Motrin] 800 mg PO Q6H PRN oxyCODONE 5 mg PO Q2H PRN witch Susan [Tucks] 1 pad TOP ASDIRECTED PRN Assess Lochia [WOMSER] Per Unit Routine Assess Uterine Involution [WOMSER] Per Unit Routine Peripheral IV Discontinue [OM.PC] Routine 01/04/21 02:09 Ice Therapy [OM.PC] Per Unit Routine Perineal Care [OM.PC] Per Unit Routine 01/04/21 02:10 Cooling Warming Measures [RC] ASDIRECTED 01/04/21 Breakfast Regular Diet [DIET] - Assessment Assessment:: Status post delivery of ~17 week fetus. - Plan Plan:: Labs reviewed. VS reviewed and are stable. Patient would like to go home this morning. Placenta/fetus to pathology and then home per patient request. They are declining chromosome analysis and autopsy, but accept gross exam of fetus and detailed exam of placenta/umbilical cord. Labs are normal. Infection and bleeding warnings reviewed. Pelvic rest for 2 weeks. Follow up at [facility] 2 weeks. Patient will resume her lexapro 10 mg daily. She agrees to call with any concerns.
== END 2021-01-04 09:20 | disposition home or self-care (01) ==
LOC: MW.OB 17:21
PROVIDERS: ADMIT Obstetrics & Gynecology; ATTEND Obstetrics & Gynecology
DX: O02.1 Missed abortion (principal); Z01.812 Encounter for preprocedural laboratory examination; Z20.822 Contact with and (suspected) exposure to COVID-19; Z87.442 Personal history of urinary calculi
CPT/HCPCS: 36415; 83036; 84443; 85027; 85384; 85730; 86850; 86900; 86901; 87635; 88305; A9270; G0378; J0595; U0002

== ENCOUNTER 2024-04-21 11:56 | Emergency (ER) | payer BC ==
[2024-04-21] MEDS ORDERED: Sodium Chloride 0.9% 2.5 ML Syringe FLUSH PRN (12:13)
[2024-04-21] MEDS ORDERED: Sodium Chloride 0.9% 10 ML Syringe FLUSH PRN (12:13)
[2024-04-21] MEDS: Morphine 4 MG/ML Syringe IVPUSH ONE (12:46)
[2024-04-21] MEDS: Ondansetron 4 MG/2 ML SDV IVPUSH ONE ×2 (12:46→15:56)
[2024-04-21] MEDS: Sodium Chloride 0.9% 1,000 ML IV ONE (12:46)
[2024-04-21] MEDS: Ketorolac 30 MG/ML SDV IVPUSH ONE (12:46)
[2024-04-21 12:49] LABS: APPEARANCE,URINE SLT CLOUDY; BILIRUBIN,URINE NEGATIVE (NEGATIVE); COLOR,URINE YELLOW; GLUCOSE,URINE NEGATIVE (NEGATIVE); KETONES,URINE NEGATIVE (NEGATIVE); LEUKOCYTE ESTERASE,URINE NEGATIVE (NEGATIVE); NITRITE,URINE NEGATIVE (NEGATIVE); OCCULT BLOOD,URINE TRACE-INTACT (NEGATIVE); PROTEIN,URINE NEGATIVE (NEGATIVE); UROBILINOGEN,URINE 0.2 EU/dL (<2.0)
[2024-04-21 12:51] LABS: BASOPHILS ABSOLUTE AUTO 0.07 K/uL (0.00-0.20); BASOPHILS PERCENT AUTO 0.7 % (0.0-1.0); EOSINOPHILS ABSOLUTE AUTO 0.05 K/uL (0.00-0.45); EOSINOPHILS PERCENT AUTO 0.5 % (0.0-6.0); HEMATOCRIT 35.2 % (37.0-47.0); HEMOGLOBIN 10.6 g/dL (12.0-16.0); IMMATURE GRAN ABSOLUTE AUTO 0.03 K/uL (0.00-0.05); IMMATURE GRAN PERCENT AUTO 0.3 % (0.0-0.4); LYMPHOCYTES ABSOLUTE AUTO 1.19 K/uL (1.00-4.80); LYMPHOCYTES PERCENT AUTO 11.1 % (24.0-44.0); MEAN CORPUSCULAR HEMOGLOBIN 21.6 pg (28.0-32.0); MEAN CORPUSCULAR HGB CONC 30.1 g/dL (32.0-36.0); MEAN CORPUSCULAR VOLUME 71.8 fL (83.0-99.0); MEAN PLATELET VOLUME 8.9 fL (9.4-12.3); MONOCYTES ABSOLUTE AUTO 0.41 K/uL (0.00-0.80); MONOCYTES PERCENT AUTO 3.8 % (0.0-8.0); NEUTROPHILS ABSOLUTE AUTO 9.01 K/uL (1.80-7.70); NEUTROPHILS PERCENT AUTO 83.6 % (41.0-71.0); PLATELET COUNT,PLT 548 K/uL (150-400); WHITE BLOOD CELL COUNT,WBC 10.76 K/uL (3.9-11.3)
[2024-04-21 13:01] LABS: BACTERIA,URINE 1+ (NEGATIVE); EPITHELIAL CELLS,URINE FEW (NONE-FEW); WBC,URINE 0-2 (0-5/HPF)
[2024-04-21 13:02] LABS: YEAST,URINE FEW
[2024-04-21 13:16] LABS: BILIRUBIN TOTAL 0.3 mg/dL (0.2-1.0); CALCIUM 8.7 mg/dL (8.5-10.1); CARBON DIOXIDE,CO2 26.7 mmol/L (21.0-32.0); EST CRCL DRUG DOSING (CG) 57.48 mL/min; POTASSIUM,K 4.2 mmol/L (3.5-5.1); PROTEIN TOTAL,TP 7.9 g/dL (6.4-8.2)
[2024-04-21] MEDS ORDERED: Naloxone 0.4 MG/ML SDV IVPUSH PRN (15:51)
[2024-04-21] MEDS: HYDROmorphone 1 MG/ML Syringe IVPUSH ONE (15:56)
[2024-04-21 17:44] VITALS: BP 127/85; PULSE 78
== END 2024-04-21 17:43 | disposition home or self-care (01) ==
LOC: MW.ED 11:56
DX: N13.2 Hydronephrosis with renal and ureteral calculous obstruction (principal); Z75.8 Other problems related to medical facilities and other health care
CPT/HCPCS: 36415; 74176; 80053; 81001; 81025; 83690; 85025; 87086; 96361; 96374; 96375; 96376; 99284; J1170; J1885; J2270; J2405; J7030

== ENCOUNTER 2024-05-27 00:24 | Emergency (ER) | payer BC ==
[2024-05-27 00:46] LABS: BASOPHILS PERCENT AUTO 0.8 % (0.0-1.0); EOSINOPHILS ABSOLUTE AUTO 0.39 K/uL (0.00-0.45); EOSINOPHILS PERCENT AUTO 2.9 % (0.0-6.0); HEMATOCRIT 31.7 % (37.0-47.0); HEMOGLOBIN 9.8 g/dL (12.0-16.0); IMMATURE GRAN PERCENT AUTO 0.8 % (0.0-0.4); LYMPHOCYTES ABSOLUTE AUTO 4.68 K/uL (1.00-4.80); LYMPHOCYTES PERCENT AUTO 35.3 % (24.0-44.0); MEAN CORPUSCULAR HGB CONC 30.9 g/dL (32.0-36.0); MEAN CORPUSCULAR VOLUME 71.2 fL (83.0-99.0); MEAN PLATELET VOLUME 8.8 fL (9.4-12.3); MONOCYTES ABSOLUTE AUTO 0.87 K/uL (0.00-0.80); MONOCYTES PERCENT AUTO 6.6 % (0.0-8.0); NEUTROPHILS ABSOLUTE AUTO 7.13 K/uL (1.80-7.70); NEUTROPHILS PERCENT AUTO 53.6 % (41.0-71.0); PLATELET COUNT,PLT 505 K/uL (150-400); RED BLOOD CELL COUNT 4.45 M/uL (4.10-5.30); WHITE BLOOD CELL COUNT,WBC 13.27 K/uL (3.9-11.3)
[2024-05-27] MEDS: Sodium Chloride 0.9% 1,000 ML IV ONE (00:46)
[2024-05-27] MEDS: Ondansetron 4 MG/2 ML SDV IVPUSH ONE ×2 (00:46→02:11)
[2024-05-27] MEDS: Ketorolac 30 MG/ML SDV IVPUSH ONE (00:46)
[2024-05-27 00:47] LABS: APPEARANCE,URINE CLOUDY; BILIRUBIN,URINE NEGATIVE (NEGATIVE); COLOR,URINE YELLOW; GLUCOSE,URINE NEGATIVE (NEGATIVE); KETONES,URINE NEGATIVE (NEGATIVE); LEUKOCYTE ESTERASE,URINE NEGATIVE (NEGATIVE); NITRITE,URINE POSITIVE (NEGATIVE); OCCULT BLOOD,URINE LARGE (NEGATIVE); PROTEIN,URINE 100 mg/dL (NEGATIVE); UROBILINOGEN,URINE 0.2 EU/dL (<2.0)
[2024-05-27 01:00] LABS: RBC,URINE TOO NUMEROUS TO CT (0-2/HPF)
[2024-05-27 01:01] LABS: CALCIUM 8.8 mg/dL (8.5-10.1); CARBON DIOXIDE,CO2 28.3 mmol/L (21.0-32.0); EST CRCL DRUG DOSING (CG) 57.48 mL/min; POTASSIUM,K 3.3 mmol/L (3.5-5.1)
[2024-05-27 01:01] LABS: BACTERIA,URINE FEW (NEGATIVE); CALCIUM OXALATE CRYSTALS,URINE FEW (NEGATIVE); MUCUS,URINE LIGHT (NONE-MOD); SQUAMOUS EPITHELIAL CELLS,UR FEW
[2024-05-27] MEDS: Cephalexin 500 MG Cap PO STA (01:47)
[2024-05-27] MEDS: oxyCODONE 5 MG Tab PO ONE ×2 (02:07→02:08)
[2024-05-27] MEDS: Tamsulosin 0.4 MG Cap.ER PO ONE (02:08)
[2024-05-27] MEDS: Morphine 2 MG/ML SYRINGE IVPUSH ONE (02:08)
[2024-05-27 02:43] VITALS: BP 138/90; PULSE 83
== END 2024-05-27 02:43 | disposition home or self-care (01) ==
LOC: MW.ED 00:24
DX: N13.2 Hydronephrosis with renal and ureteral calculous obstruction (principal); Z79.899 Other long term (current) drug therapy; Z90.49 Acquired absence of other specified parts of digestive tract
CPT/HCPCS: 36415; 74176; 80048; 81001; 85025; 87086; 96374; 96375; 96376; 99284; A9270; J1885; J2270; J2405; J7030